=== PATIENT | male | born 1960 | race African-American/Black ===

== ENCOUNTER 2016-10-06 11:18 | Inpatient (IN) ==
[2016-10-06] MEDS ORDERED: SODIUM CHLORIDE 0.9% 500 ML IV STA (11:44)
--- NOTE | 2016-10-06 11:48 | EKG Report ---
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
--- NOTE | 2016-10-06 12:07 | XRay Report ---
XR chest 1V portable Indication: Abdominal pain Comparison: None. Technique: Portable AP chest was performed. Findings: 2-lead cardiac pacemaker is present. Heart size is normal. The lungs are clear. Pulmonary vasculature appears within normal limits. Bones and soft tissues demonstrate no significant abnormalities. Impression: 1. No findings are present to suggest etiology of abdominal pain. Stable interval appearance of the chest. 10/06/2016 12:04 PM PROCEDURE INTERPRETED AT [facility] DEPARTMENT OF RADIOLOGY Final Report Signed by: Dr. Moris Christopher
[2016-10-06] MEDS ORDERED: ONDANSETRON 4 MG/2 ML VIAL ONE ×2 (12:26→14:14)
--- NOTE | 2016-10-06 12:27 | CT Report ---
CT abdomen pelvis wo con Indication: Diffuse abdominal pain with rebound tenderness. Comparison: None. Technique: CT of the abdomen and pelvis was performed without administration of intravenous contrast. The CT examination was performed using one or more of the following dose reduction techniques: Automatic exposure control, adjustment of the mA and kV according to patient size, use of acute or iterative reconstruction techniques. Findings: Complete evaluation of solid organs, vascular structures, and bowel wall is not possible secondary to lack of intravenous contrast. Lower chest: Mild dependent atelectatic changes are noted within the lungs bilaterally. Calcified granulomas noted within the posterior sulcus left lower lobe. Liver: Punctate calcifications present within the liver are nonspecific and could reflect evidence of prior granulomatous disease. No focal lesions are clearly demonstrated. There is a small amount of ascites noted anterior to the margin of the right hepatic lobe as well as along the posterior margin of the right hepatic lobe. Gallbladder: The gallbladder demonstrates no significant abnormality. Spleen: Spleen is normal in size and demonstrates numerous punctate calcifications compatible with granulomatous disease. Pancreas: Pancreas demonstrates no significant abnormality. Adrenal glands: The adrenal glands demonstrate no significant abnormalities. Kidneys: The kidneys demonstrate no significant abnormalities. Aorta: The aorta demonstrates no significant abnormality. Inferior vena cava: The inferior vena cava demonstrates no significant abnormality. Lymph nodes: No adenopathy is noted within the abdomen or pelvis. Borderline lymph nodes noted within the mesentery. Stomach and bowel: Stomach demonstrates no significant abnormality. There may be a small hiatal hernia. The duodenum is unremarkable. Loops of small bowel particularly within the mid right abdomen demonstrate moderate length segment 7 which there is suggested bowel wall thickening. Bowel wall measures up to 10 mm. Additionally, there is some evidence of fluid within the leaves of the mesentery. Complete evaluation of bowel wall is incomplete secondary to lack of IV and enteric contrast. Additional bowel wall thickening in the left mid abdomen is suggested involving loops of what may represent jejunum image #[id number]. Bowel wall within this region of small bowel measures up to 7.8 mm. Hazy attenuation possibly reflective of inflammatory changes noted within the mesentery. Intrapelvic contents: Demonstrate no significant abnormalities. Skeletal structures: The imaged bony structures of the lumbar spine, lower chest, pelvis, proximal femurs demonstrate no acute findings. Soft tissues and muscular structure of the body wall: Demonstrate no significant abnormalities. Impression: 1. Multiple segments of small bowel demonstrate presence of bowel wall thickening involving what appears to represent jejunum. Additionally loops of ileum. Associated possibly with this free fluid is noted within the leaves of the mesentery as well as lies adjacent the margins of the liver. There may be some inflammatory changes of the mesentery. Borderline lymph nodes are present within the mesentery. Differential considerations are broad and include enteritis, inflammatory bowel disease, possibly celiac disease, ischemia, Waldenstrom's macroglobulinemia, amyloidosis, and lymphoma. 2. Other findings as detailed. 10/06/2016 12:16 PM PROCEDURE INTERPRETED AT [facility] DEPARTMENT OF RADIOLOGY Final Report Signed by: Dr. Moris Christopher
[2016-10-06 12:33] LABS: Basophils % 0.4 % (0.0-0.8); Eosinophils # 0.1 10*3/uL (0.0-0.87); Hematocrit 49.6 VOL% (42.0-52.0); Hemoglobin 16.9 GM/DL (14.0-18.0); Immature Granulocytes % 0.3 %; Immature Granulocytes Absolute 0.03 #; Lymphocytes # 2.6 10*3/uL (1.4-4.0); Lymphocytes % 24.9 % (21.2-54.2); Mean Corpuscular HGB Conc 34.1 GM/DL (32-36); Mean Corpuscular Hemoglobin 32 PG (27-34); Mean Corpuscular Volume 92.9 FL (87-102); Mean Platelet Volume 11.7 FL (9.6-12.0); Monocytes # 0.6 10*3/uL (0.11-0.8); Monocytes % 6.1 % (1.7-12.7); Neutrophils # 6.9 10*3/uL (1.4-7.4); Neutrophils % 67.3 % (38.7-73.9); Platelet Count 207 T/CUMM (130-400); Red Blood Count 5.34 MC/CUMM (3.8-5.5); Red Cell Distribution Width 13.1 % (9.3-17.3); White Blood Count 10.2 T/CUMM (4-12)
[2016-10-06] MEDS ORDERED: ONDANSETRON 4 MG/2 ML VIAL IV STA ×2 (12:36→14:12)
[2016-10-06 13:13] LABS: Alanine Aminotransferase 15 U/L (16-61); Albumin 3.7 G/DL (3.4-5.0); Alkaline Phosphatase 75 U/L (45-117); Aspartate Amino Transferase 16 U/L (0-37); Blood Urea Nitrogen 27 MG/DL (7-18); Calcium 9.1 MG/DL (8.5-10.1); Glucose 104 MG/DL (74-106); Magnesium 2.1 MG/DL (1.8-2.4); Osmolality,Calculated 281.5 MOS/KG (273-304); Potassium 3.7 MMOL/L (3.5-5.1); Sodium 139 MMOL/L (136-145); Total Protein 8.4 G/DL (6.4-8.3); Troponin I Only < 0.015 NG/ML (0.00-0.045)
[2016-10-06] MEDS ORDERED: HYDROmorphone 2 MG/1 ML VIAL IV STA (14:12)
[2016-10-06] MEDS ORDERED: HYDROmorphone 2 MG/1 ML VIAL ONE (14:15)
--- NOTE | 2016-10-06 14:35 | Emergency Department Note ---
Gerson Kunz Brittany, am scribing for, and in the presence of, Thomas Obrien MD 12:03. Camilel Kunz Phillip K, MD, personally performed the services described in this documentation, ascribed by Jessi Nieto in my presence, and it is both accurate and complete 435 . Arrival - Arrival Chief Complaint: Arrhythmia/Palpitations Stated Complaint: SOB,heart attack symptoms ED Nursing Triage Note: C/o midsternal chest tightness and palpitations-onset yesterday. Also c/o abd pain, nausea, and diarrhea that started yesterday. Mode of Arrival: Stretcher Limitations: No Limitations Source: Patient, RN Notes Reviewed - History of Present Illness HPI Narrative: Patient is a 56 y/o black male presenting to the ED by EMS for further evaluation of generalized abdominal pain which began two days ago. Patient reports that this onset of abdominal pain was precipitated by an episode of diaphoresis, chest pain, palpitations, and near syncope. He states that he did have an episode of N/V this morning. Patient notes that he does not have any chest pain, describes more so abdominal pain. He states that he has had episodes of this in the past, and with last ER visit he was treated with abx which led to resolution. Patient states that these episodes used to occur moreHe reports that he did follow-up as instructed on last visit and had an upper and lower GI scope performed, but etiology of these episodes have not been found. PCP is Dr. Toledo. Denies history of Cholecystectomy/Appendectomy or Liver Problems. Patient reports that he is an occasional EtOH user. PMHx of HTN , [place], Pacemaker, GERD, Cardiac Surgery, Colononscopy, and EGD. No other complaints. Allergies/Adverse Reactions: Allergies Allergy/AdvReac Type Severity Reaction Status Date / Time rifampin [From Rimactane] Allergy ANAPHYLAXIS Verified 03/27/15 19:34 Home Medications: Home Medications Medication Instructions Recorded Confirmed Type Etanercept [Enbrel] 50 mg SUBCUT MO 03/28/15 10/06/16 History HYDROcodone/ACETAMIN 10-325 [[place] 1 tablet PO Q4H PRN 03/28/15 10/06/16 History 10-325] Omeprazole 20 mg PO BID 03/28/15 10/06/16 History Meloxicam [Mobic] 15 mg PO QAM 10/19/15 10/06/16 History amLODIPine [Norvasc] 10 mg PO QAM 10/19/15 10/06/16 History hydrALAZINE TAB [Apresoline Tab] 10 mg PO QID 10/19/15 10/06/16 History Lisinopril [Lisinopril] 40 mg PO QAM 10/06/16 10/06/16 History hydroCHLOROthiazide 25 mg PO QAM 10/06/16 10/06/16 History [Hydrochlorothiazide] Review of System - Review of System 12 point system: reviewed and no additional remarkable complaints except as stated - Review of System Constitutional: Absent: chills, diaphoresis, fever Eyes: Absent: vision change Head/Ears/Nose/Throat: Absent: nasal drainage, sore throat Respiratory: Absent: respiratory distress Cardiovascular: Absent: chest pain Gastrointestinal: Present: abdominal pain, nausea, vomiting Genitourinary male: Absent: urgency, dysuria, frequency Musculoskeletal: Absent: arm pain, back pain, leg pain, neck pain Skin: Absent: rash Neurological: Absent: headache Psychiatric: Absent: anxiety, depression Medical,Surgical,& Family Hx - Medical History Cardio: History of: [place], Pacemaker (3 years ago) HEENT: History of: Eye Problem (poor vision?) Gastrointestinal: History of: GERD - Surgical History Cardiac Surgeries: Sugical HX of: Cardiac Surgery, Vascular Access Devices Abdominal Surgeries: Surgical HX of: Colonoscopy, EGD - Family History Family History: Reports;: Family Cancer (sister), Family Diabetes (father), Family Hypertension ("everybody") Denies;: Family Anesthesia Reaction, Family Heart Disease, Family Psychiatric Problems, Family Stroke - Social History Smoking Status: Never smoker Frequency of Alcohol Use: None Type of Drug Use: None Exam Vital Signs: Vital Signs Temperature 97.4 F L 10/06/16 11:26 Pulse Rate 74 10/06/16 13:30 Respiratory Rate 20 10/06/16 13:30 Blood Pressure 118/79 10/06/16 13:30 O2 Sat by Pulse Oximetry 97 10/06/16 13:30 - General General appearance: alert, in no apparent distress - Head Head exam: Present: atraumatic, normocephalic, normal inspection - Eye Eye exam: Present: normal appearance, PERRL, EOMI - ENT ENT exam: Present: normal exam, normal oropharynx - Neck Neck exam: Present: normal inspection, full ROM, trachea midline - Chest Chest inspection: Present: normal inspection, symmetric chest wall rise - Respiratory Respiratory exam: Present: normal lung sounds bilaterally - Cardiovascular Cardiovascular exam: Present: regular rate, normal rhythm, normal heart sounds - Abdominal Exam Abdominal exam: Present: soft, distention (slight), tenderness (diffuse abdominal tenderness to direct palpation), guarding, rebound, diminished bowel sounds - Rectal Exam Rectal exam: Present: deferred - Extremities Exam Extremities exam: Present: normal inspection - Back Exam Back exam: Present: normal inspection - Neurological Exam Neurological exam: Present: alert, oriented X3, CN II-XII intact. Absent: motor sensory deficit - Psychiatric Psychiatric exam: Present: normal affect, normal mood - Skin Skin exam: Present: warm, dry Course Course Narrative: Patient discussed with the hospitalist. Results - Labs CBC & BMP: 10/06/16 12:24 10/06/16 12:24 Lab Results: I have reviewed the patients labs Labs: Laboratory Tests 10/06/16 12:16 POC Creatinine 2.11 H POC Estimated GFR (eGFR) 42 Laboratory Tests 10/06/16 12:24 WBC 10.2 RBC 5.34 Hgb 16.9 Hct 49.6 Plt Count 207 Laboratory Tests 10/06/16 12:24 Sodium 139 Potassium 3.7 Chloride 109 H Carbon Dioxide 21 BUN 27 H Creatinine 2.40 H Glucose 104 AST 16 ALT 15 L Troponin I < 0.015 Total Protein 8.4 H Globulin 4.7 H Albumin/Globulin Ratio 0.7 L - EKG EKG results: interpreted by ERMD, WNL, sinus rhythm - Diagnostic Findings Procedure: Chest x-ray: report reviewed by me ( No findings are present to suggest etiology of abdominal pain. ), CT Abdomen and Pelvis: report reviewed by me (1. Multiple segments of small bowel demonstrate presence of bowel wall thickening involving what appears to represent jejunum. Additionally loops of ileum. Associated possibly with this free fluid is noted within the leaves of the mesentery as well as lies adjacent the margins of the liver. There may be some inflammatory changes of the mesentery. Borderline lymph nodes are present within the mesentery. Differential considerations are broad and include enteritis, inflammatory bowel disease, possibly celiac disease, ischemia, Waldenstrom's macroglobulinemia, amyloidosis, and lymphoma. 2. Other findings as detailed.) Disposition Clinical Impression: Abdominal pain, Nausea and vomiting, Rule out colitis, inflammatory bowel dis Case discussed with: patient Disposition: Still a Patient Condition: Guarded Additional Instructions: Admit to the hospitalist
[2016-10-06 14:38] LABS: Apearance,Urine Slightly Hazy (Clear); Bacteria,Urine Occasional /HPF (Few); Bilirubin,Urine Negative (Negative); Blood, Urine Negative (Negative); Glucose,Urine (UA) Negative (Negative); Ketones,Urine Negative (Negative); Mucus,Urine Occasional /LPF (Occasional); Nitrite,Urine Negative (Negative); Protein,Urine Negative; RBC,Urine 1 /HPF (0-4); Squamous Epithelial Cell,Urine Occasional /HPF (0-10); Urine Specific Gravity 1.019 (1.001-1.035); WBC,Urine 4 /HPF (0-6)
[2016-10-06 14:39] LABS: Urine Color Dark yellow (Yellow)
--- NOTE | 2016-10-06 15:23 | Hospitalist History & Physical ---
Assessment and Plan - Time spent with patient Time spent with patient: Greater than 30 minutes (1) Abdominal pain Status: Acute Assessment and plan: Patient is diffusely tender across the abdomen. He does have a history of ankylosing spondylitis and appears to have this recurrent abdominal inflammation annually. Given the patient's history, and the suspicion of inflammatory bowel disease is quite high. Will check for C. difficile and stool culture. Start Cipro, Flagyl and normal saline. Patient was started on clear liquid diet. GI has been consulted for assistance. Current Visit: Yes (2) Ankylosing spondylitis Status: Acute Assessment and plan: Patient is followed by Dr. Toledo. He currently takes Enbrel along with Tracy and Mobic. Current Visit: Yes (3) Acute renal failure Status: Acute Assessment and plan: IV fluid hydration. Current Visit: Yes (4) Hypertension Status: Chronic Assessment and plan: Continue home medications. Current Visit: No (5) Intractable nausea and vomiting Status: Resolved Current Visit: No History of Present Illness Chief complaint: abdominal pain History of present illness: Mr. Jordan is a 56 year old -[place] male with a past medical history significant for hypertension, ankylosing spondylosis, [place] with PM placement in 2012 who presents to the ED today with a 3-day complaint of abdominal pain and distension with associated N/V/D. Patient reports a sudden onset of diffuse abdominal pain on Tuesday. He tells me that he became nauseous with vomiting and diarrhea late Tuesday night. This diarrhea he describes as watery stool and he reports several episodes at 30 min to 1 hour intervals. He does report some constipation several days prior to this diarrhea. Patient confirms headache, diffuse abdominal tenderness and distention, and decreased appetite. He also notes that, when he coughs, he feels as though he is about to "pass out". He denies actual syncope, blurry vision, edema. He notes that he has had several episodes of this abdominal pain over the last few years but has never been diagnosed definitely with any cause. CT on admission reveals multiple segments of small bowl wall thickening with inflammatory changes of the mesentery. Hematology is unremarkable. Chemistry reveals sodium 139, potassium 3.7, chloride 109, BUN 27, creatinine 2.40, total bili 0.90, AST 16, ALT 15, alkaline phosphatase 75, lipase was 66. Case been discussed with both Dr. Obrien, ER physician, and Dr. French, admitting physician and the patient will be admitted to the hospital medicine service for further evaluation and treatment. Patient is a full code. His home meds reviewed and reconciled. Home Medications Medication Instructions Recorded Confirmed Type Etanercept [Enbrel] 50 mg SUBCUT MO 03/28/15 10/06/16 History HYDROcodone/ACETAMIN 10-325 [[place] 1 tablet PO Q4H PRN 03/28/15 10/06/16 History 10-325] Omeprazole 20 mg PO BID 03/28/15 10/06/16 History Meloxicam [Mobic] 15 mg PO QAM 10/19/15 10/06/16 History amLODIPine [Norvasc] 10 mg PO QAM 10/19/15 10/06/16 History hydrALAZINE TAB [Apresoline Tab] 10 mg PO QID 10/19/15 10/06/16 History Lisinopril [Lisinopril] 40 mg PO QAM 10/06/16 10/06/16 History hydroCHLOROthiazide 25 mg PO QAM 10/06/16 10/06/16 History [Hydrochlorothiazide] Allergies Allergy/AdvReac Type Severity Reaction Status Date / Time rifampin [From Rimactane] Allergy ANAPHYLAXIS Verified 03/27/15 19:34 Medical,Surgical,& Family Hx - Medical History Cardio: History of: [place], Pacemaker (3 years ago) HEENT: History of: Eye Problem (poor vision?) Gastrointestinal: History of: GERD - Surgical History Cardiac Surgeries: Sugical HX of: Cardiac Surgery, Vascular Access Devices Abdominal Surgeries: Surgical HX of: Colonoscopy, EGD - Family History Family History: Reports;: Family Cancer (sister), Family Diabetes (father), Family Hypertension ("everybody") Denies;: Family Anesthesia Reaction, Family Heart Disease, Family Psychiatric Problems, Family Stroke - Social History Smoking Status: Never smoker Frequency of Alcohol Use: None Type of Drug Use: None Marital Status: Lives With:: Spouse Functional capacity: independent ambulation 12 point system: reviewed and no additional remarkable complaints except as stated Exam - Constitutional Vitals: Period Temp Pulse Resp BP Sys/Bradley Pulse Ox Last 24 Hr 97.4 F-97.4 F 69-86 17-20 104-131/71-87 96-99 General appearance: normal weight, no acute distress - Head Head exam: Present: normal inspection, normocephalic, atraumatic - Eye Eye exam: Present: EOMI Pupils: Present: JOANNE - Neck Neck exam: Present: normal inspection. Absent: lymphadenopathy, tenderness - Respiratory Respiratory exam: Present: clear to auscultation bilaterally. Absent: rales, rhonchi, wheezes - Cardiovascular Cardiovascular exam: Present: irregular rhythm - GI/Abdominal GI/Abdominal exam: Present: normal bowel sounds, distended, guarding, tenderness , rebound. Absent: ascites, mass - Extremities Exam Extremities exam: Present: normal capillary refill, full ROM. Absent: edema - Neurological Exam Neurological exam: Present: alert, oriented X3, CN II-XII intact, reflexes normal - Psychiatric Psychiatric exam: Present: normal affect, normal mood - Skin Skin exam: Present: normal color, warm, dry, intact Results - Labs CBC & BMP: 10/06/16 12:24 10/06/16 12:24 Lab Results: I have reviewed the past 24 hour labs - EKG EKG results: interpreted by DICK, sinus rhythm - Diagnostic Findings Procedure: CT Abdomen and Pelvis: image reviewed by me, report reviewed by me
[2016-10-06] MEDS ORDERED: ACETAMINOPHEN 325 MG TABLET PO PRN (15:26)
--- NOTE | 2016-10-06 15:45 | Gastrointestinal Consult Note ---
<Jessie Sweeney - Last Filed: 10/06/16 15:40> Assessment and Plan (1) Abdominal pain Status: Acute Assessment and plan: 82-2 day history of abdominal pain with associated nausea vomiting and intractable diarrhea over the last [address] findings noted as below. Reports prior history of this 4 over the past year and a half. Endoscopy done at [facility] over the past year. Afebrile without leukocytosis at present time. Obtain endoscopy records from [facility]. Further plan an addendum follow Dr. Hernandez. Current Visit: Yes History of Present Illness Chief complaint: Abdominal pain, nausea vomiting History of present illness: Mr. Jordan is a 56 year old male who states he was in his usual state of health until Tuesday night when he began not feeling well. He has a prior history of hypertension, spondylolithiasis, [place] with pacemaker in 2012. Patient states that Tuesday night he had a fairly sudden onset of umbilical abdominal pain that radiated across his abdomen. He states shortly after that he became nauseated and began vomiting. Patient states that leading up until this a couple days prior, he was dealing with some constipation and some abdominal discomfort related to this. He states that the pain continued to progress without relief and on last night began having intractable diarrhea. He states that he has had diarrhea stools approximately every 30 minutes to an hour since onset. He denies any melena or hematochezia with this. He denies any coffee-ground emesis or hematemesis. He denies any recent weight loss, fever or chills. He states he has had some diaphoresis with the pain as well as some feelings of syncope. Patient states that this is the fourth episode of this, very similar nature each time, over the past year and a half. He was hospitalized here in March 2015 and was felt to have gastroenteritis and was discharged with recommendations to follow up for endoscopy. He is followed by Dr. Shabana dockery therefore states he had endoscopy done, upper liver, in the past year with no significant findings that he can recall. He states that on a couple of episodes , antibiotics seem to alleviate the symptoms and it was fairly easily resolved. On admission, patient had CT of abdomen without contrast with findings of multiple segments of small bowel wall thickening appearing around the jejunum with additional loops of the ileum. He is also noted to have some inflammatory changes of the mesentery with borderline lymph nodes. He is afebrile at this time without leukocytosis. Home Medications Medication Instructions Recorded Confirmed Type Etanercept [Enbrel] 50 mg SUBCUT MO 03/28/15 10/06/16 History HYDROcodone/ACETAMIN 10-325 [[place] 1 tablet PO Q4H PRN 03/28/15 10/06/16 History 10-325] Omeprazole 20 mg PO BID 03/28/15 10/06/16 History Meloxicam [Mobic] 15 mg PO QAM 10/19/15 10/06/16 History amLODIPine [Norvasc] 10 mg PO QAM 10/19/15 10/06/16 History hydrALAZINE TAB [Apresoline Tab] 10 mg PO QID 10/19/15 10/06/16 History Lisinopril [Lisinopril] 40 mg PO QAM 10/06/16 10/06/16 History hydroCHLOROthiazide 25 mg PO QAM 10/06/16 10/06/16 History [Hydrochlorothiazide] Allergies Allergy/AdvReac Type Severity Reaction Status Date / Time rifampin [From Rimactane] Allergy ANAPHYLAXIS Verified 03/27/15 19:34 Medical,Surgical,& Family Hx - Medical History Cardio: History of: [place], Pacemaker (3 years ago) HEENT: History of: Eye Problem (poor vision?) Gastrointestinal: History of: GERD - Surgical History Cardiac Surgeries: Sugical HX of: Cardiac Surgery, Vascular Access Devices Abdominal Surgeries: Surgical HX of: Colonoscopy, EGD - Family History Family History: Reports;: Family Cancer (sister), Family Diabetes (father), Family Hypertension ("everybody") Denies;: Family Anesthesia Reaction, Family Heart Disease, Family Psychiatric Problems, Family Stroke - Social History Smoking Status: Never smoker Frequency of Alcohol Use: None Type of Drug Use: None 12 point system: reviewed and no additional remarkable complaints except as stated - Constitutional Constitutional: Present: excessive sweating - EENT Eyes: Present: as per HPI Ears: Present: as per HPI Nose, mouth and throat: Present: as per HPI - Cardiovascular Cardiovascular: Present: as per HPI - Respiratory Respiratory: Present: as per HPI - Gastrointestinal Gastrointestinal: Present: as per HPI, abdominal pain, bloating, diarrhea, loose stools, nausea, vomiting - Genitourinary Genitourinary: Present: as per HPI - Musculoskeletal Musculoskeletal: Present: as per HPI, arthralgias - Neurological Neurological: Present: as per HPI - Psychiatric Psychiatric: Present: as per HPI - Endocrine Endocrine: Present: as per HPI - Hematologic/Lymphatic Hematologic/Lymphatic: Present: as per HPI Exam - Constitutional Vitals: Period Temp Pulse Resp BP Sys/Bradley Pulse Ox Last 24 Hr 97.4 F-97.4 F 69-86 17-20 104-131/71-87 96-99 General appearance: normal weight, no acute distress - Head Head exam: Present: normal inspection, normocephalic - Eye Eye exam: Present: other (Lids and conjunctive are unremarkable). Absent: scleral icterus - ENT ENT exam: Present: normal exam, normal oropharynx - Neck Neck exam: Present: normal inspection - Respiratory Respiratory exam: Present: clear to auscultation bilaterally. Absent: rales, rhonchi, wheezes - Cardiovascular Cardiovascular exam: Present: regular rate and rhythm. Absent: diastolic murmur , JVD, systolic murmur - GI/Abdominal GI/Abdominal exam: Present: normal bowel sounds, distended, tenderness, soft. Absent: ascites, mass, organomegaly - Extremities Exam Extremities exam: Present: normal inspection, full ROM - Back Exam Back exam: Present: normal inspection - Neurological Exam Neurological exam: Present: alert, oriented X3 - Psychiatric Psychiatric exam: Present: normal affect, normal mood - Skin Skin exam: Present: normal color, warm, dry Results - Labs CBC & BMP: 10/06/16 12:24 10/06/16 12:24 Lab Results: I have reviewed the past 24 hour labs - Diagnostic Findings Procedure: CT Abdomen and Pelvis: report reviewed by me <Gerson Hernandez - Last Filed: 10/06/16 19:36> History of Present Illness History of present illness: Mr. Jordan is a 56 year old male Exam - Constitutional Vitals: Period Temp Pulse Resp BP Sys/Bradley Pulse Ox Last 24 Hr 97.4 F-97.9 F 49-86 16-20 104-149/62-93 96-99 Results - Labs CBC & BMP: 10/06/16 12:24 10/06/16 12:24
[2016-10-06] MEDS: SODIUM CHLORIDE 0.9% 1,000 ML IV SCH (16:30)
[2016-10-06] MEDS: metroNIDAZOLE INJ 500 MG in PREMIX 1 EACH IV SCH (17:08)
[2016-10-06] MEDS: ENOXAPARIN 40 MG/0.4 ML SYRINGE SUBCUT SCH (17:08)
[2016-10-06] MEDS: hydrALAZINE 10 MG TABLET PO SCH ×2 (17:09→20:37)
[2016-10-06] MEDS: CIPROFLOXACIN INJ 400 MG in PREMIX 1 EACH IV SCH (18:09)
[2016-10-06] MEDS: ONDANSETRON 4 MG/2 ML VIAL IV PRN (18:12)
[2016-10-07] MEDS: metroNIDAZOLE INJ 500 MG in PREMIX 1 EACH IV SCH ×3 (00:39→16:08)
[2016-10-07] MEDS: SODIUM CHLORIDE 0.9% 1,000 ML IV SCH ×5 (00:40→23:42)
[2016-10-07] MEDS: CIPROFLOXACIN INJ 400 MG in PREMIX 1 EACH IV SCH ×2 (05:54→17:23)
[2016-10-07] MEDS: MORPHINE 2 MG/1 ML SYRINGE IV PRN (05:57)
[2016-10-07 07:23] LABS: Basophils % 0.5 % (0.0-0.8); Eosinophils # 0.1 10*3/uL (0.0-0.87); Eosinophils % 2.1 % (0.00-10.9); Hematocrit 40.6 VOL% (42.0-52.0); Immature Granulocytes % 0.5 %; Immature Granulocytes Absolute 0.03 #; Lymphocytes # 1.9 10*3/uL (1.4-4.0); Lymphocytes % 30.9 % (21.2-54.2); Mean Corpuscular HGB Conc 34.2 GM/DL (32-36); Mean Corpuscular Hemoglobin 32 PG (27-34); Mean Corpuscular Volume 93.3 FL (87-102); Mean Platelet Volume 12.7 FL (9.6-12.0); Monocytes # 0.5 10*3/uL (0.11-0.8); Monocytes % 8.4 % (1.7-12.7); Neutrophils # 3.6 10*3/uL (1.4-7.4); Neutrophils % 57.6 % (38.7-73.9); Platelet Count 167 T/CUMM (130-400); Red Blood Count 4.35 MC/CUMM (3.8-5.5)
[2016-10-07 07:24] LABS: Hemoglobin 13.9 GM/DL (14.0-18.0); White Blood Count 6.2 T/CUMM (4-12)
[2016-10-07 07:45] LABS: Calcium 8.4 MG/DL (8.5-10.1); Osmolality,Calculated 284.4 MOS/KG (273-304); Potassium 3.6 MMOL/L (3.5-5.1)
--- NOTE | 2016-10-07 08:48 | Gastrointestinal Progress Note ---
<BrigittemoonJessie Tucker - Last Filed: 10/07/16 08:42> Assessment and Plan (1) Abdominal pain Status: Acute Assessment and plan: 10/07-abdominal pain improved at this time. No further nausea or vomiting since last night. Tolerating small amounts of diet. Records still pending from [place]. Continue IV antibiotics at this time. Plan an addendum to follow Dr. Hernandez. 10/06-2 day history of abdominal pain with associated nausea vomiting and intractable diarrhea over the last [address] findings noted as below. Reports prior history of this 4 over the past year and a half. Endoscopy done at [facility] over the past year. Afebrile without leukocytosis at present time. Obtain endoscopy records from [place]. Further plan an addendum follow Dr. Hernandez. Current Visit: Yes Gastroenterology - PN: Subj Interval history: CC: Abdominal pain, nausea and vomiting Pt is seen awake and alert, sitting up in bed with family at side. States that he is feeling a little better today. Denies any further nausea or vomiting since last night. He has had approximately 4 stools since admission on yesterday however states that it is better at this time. He is afebrile. We are still awaiting records at this time from [place]. He is tolerating small amounts of clear liquid diet at this time. ROS: Denies SOB or chest pain Exam (Progress Note) - Constitutional Vitals: Period Temp Pulse Resp BP Sys/Bradley Pulse Ox Last 24 Hr 97.0 F-98.4 F 49-86 16-20 104-149/55-93 93-99 General appearance: normal weight, no acute distress - Head Head exam: Present: normal inspection, normocephalic - Eye Eye exam: Present: other (Lids and conjunctive are unremarkable). Absent: scleral icterus - ENT ENT exam: Present: normal exam, normal oropharynx - Neck Neck exam: Present: normal inspection - Respiratory Respiratory exam: Present: clear to auscultation bilaterally. Absent: rales, rhonchi, wheezes - Cardiovascular Cardiovascular exam: Present: regular rate and rhythm. Absent: diastolic murmur , JVD, systolic murmur - GI/Abdominal GI/Abdominal exam: Present: normal bowel sounds, soft. Absent: ascites, distended, mass, organomegaly, tenderness - Extremities Exam Extremities exam: Present: normal inspection, full ROM - Back Exam Back exam: Present: normal inspection - Neurological Exam Neurological exam: Present: alert, oriented X3 - Psychiatric Psychiatric exam: Present: normal affect, normal mood - Skin Skin exam: Present: normal color, warm, dry Results - Labs CBC & BMP: 10/07/16 06:23 10/07/16 06:23 Lab Results: I have reviewed the past 24 hour labs <Gerson Hernandez - Last Filed: 10/07/16 18:29> Exam (Progress Note) - Constitutional Vitals: Period Temp Pulse Resp BP Sys/Bradley Pulse Ox Last 24 Hr 97.0 F-98.4 F 60-72 16-24 113-136/55-88 93-97 Results - Labs CBC & BMP: 10/07/16 06:23 10/07/16 06:23
[2016-10-07] MEDS: amLODIPine 10 MG TABLET PO SCH (09:26)
[2016-10-07] MEDS: hydrALAZINE 10 MG TABLET PO SCH ×4 (09:26→20:14)
--- NOTE | 2016-10-07 13:10 | Hospitalist Progress Note ---
Assessment and Plan (1) Abdominal pain Status: Acute Assessment and plan: GI assisting Attempting to get records from [place] On cipro and flagyl Current Visit: Yes (2) Hypertension Status: Chronic Assessment and plan: Home meds Current Visit: No (3) Intractable nausea and vomiting Status: Resolved Current Visit: No (4) Ankylosing spondylitis Status: Acute Current Visit: Yes (5) Acute renal failure Status: Acute Assessment and plan: Improving with IV hydration Current Visit: Yes Hospitalist: Subjective Interval history: No acute events overnight. Patient reports abdominal distention is unchanged but he does feel better. Abdominal pain and nausea are improving. Exam - Constitutional Vitals: Period Temp Pulse Resp BP Sys/Bradley Pulse Ox Last 24 Hr 97.0 F-98.4 F 49-79 16-20 111-149/55-93 93-99 General appearance: normal weight - Head Head exam: Present: normocephalic, atraumatic - Eye Eye exam: Present: EOMI Pupils: Present: JOANNE - ENT ENT exam: Present: normal exam - Neck Neck exam: Present: normal inspection - Respiratory Respiratory exam: Present: clear to auscultation bilaterally. Absent: rhonchi, wheezes - Cardiovascular Cardiovascular exam: Present: regular rate and rhythm - GI/Abdominal GI/Abdominal exam: Present: normal bowel sounds, distended, soft - Extremities Exam Extremities exam: Present: normal inspection - Back Exam Back exam: Present: normal inspection - Neurological Exam Neurological exam: Present: alert, oriented X3 - Psychiatric Psychiatric exam: Present: normal affect, normal mood - Skin Skin exam: Present: warm, intact Results - Labs CBC & BMP: 10/07/16 06:23 10/07/16 06:23
[2016-10-07] MEDS: ENOXAPARIN 40 MG/0.4 ML SYRINGE SUBCUT SCH (16:08)
[2016-10-08] MEDS: metroNIDAZOLE INJ 500 MG in PREMIX 1 EACH IV SCH ×3 (00:39→17:22)
[2016-10-08] MEDS: CIPROFLOXACIN INJ 400 MG in PREMIX 1 EACH IV SCH ×2 (05:43→17:22)
[2016-10-08] MEDS: MORPHINE 2 MG/1 ML SYRINGE IV PRN (06:42)
[2016-10-08] MEDS: ONDANSETRON 4 MG/2 ML VIAL IV PRN (06:47)
[2016-10-08 07:12] LABS: Basophils % 0.6 % (0.0-0.8); Eosinophils # 0.1 10*3/uL (0.0-0.87); Eosinophils % 1.9 % (0.00-10.9); Hematocrit 38.5 VOL% (42.0-52.0); Hemoglobin 13.2 GM/DL (14.0-18.0); Lymphocytes # 1.6 10*3/uL (1.4-4.0); Lymphocytes % 30.1 % (21.2-54.2); Mean Corpuscular HGB Conc 34.3 GM/DL (32-36); Mean Corpuscular Hemoglobin 32 PG (27-34); Mean Corpuscular Volume 92.3 FL (87-102); Mean Platelet Volume 11.6 FL (9.6-12.0); Monocytes # 0.4 10*3/uL (0.11-0.8); Monocytes % 8.1 % (1.7-12.7); Neutrophils # 3.1 10*3/uL (1.4-7.4); Neutrophils % 59.3 % (38.7-73.9); Platelet Count 164 T/CUMM (130-400); Red Blood Count 4.17 MC/CUMM (3.8-5.5); Red Cell Distribution Width 12.6 % (9.3-17.3); White Blood Count 5.2 T/CUMM (4-12)
[2016-10-08 07:41] LABS: Calcium 8.6 MG/DL (8.5-10.1); Magnesium 1.9 MG/DL (1.8-2.4); Osmolality,Calculated 281.3 MOS/KG (273-304); Potassium 3.6 MMOL/L (3.5-5.1)
--- NOTE | 2016-10-08 08:53 | Gastrointestinal Progress Note ---
<BrigittemoonJessie Tucker - Last Filed: 10/08/16 08:51> Assessment and Plan (1) Abdominal pain Status: Acute Assessment and plan: 10/08-continued improvement in abdominal pain at this time. Small bowel x-ray is pending for this morning. Records are also still pending from [place]. Plan an addendum to follow Dr. Hernandez peer 10/07-abdominal pain improved at this time. No further nausea or vomiting since last night. Tolerating small amounts of diet. Records still pending from [place]. Continue IV antibiotics at this time. Plan an addendum to follow Dr. Hernandez. 10/06-2 day history of abdominal pain with associated nausea vomiting and intractable diarrhea over the last [address] findings noted as below. Reports prior history of this 4 over the past year and a half. Endoscopy done at [place] over the past year. Afebrile without leukocytosis at present time. Obtain endoscopy records from [place]. Further plan an addendum follow Dr. Hernandez. Current Visit: Yes Gastroenterology - PN: Subj Interval history: CC: Abdominal pain Patient is seen, awake and alert lying in bed. States that he rested fairly well last night however he is still having an continued abdominal pain but he states this is improved from admission. He denies any nausea or vomiting associated with this. He has been tolerating small amounts of diet however he is n.p.o. at this time for small bowel x-ray this morning. No leukocytosis and is afebrile. Records are still pending from [place] at this time. Abdomen is soft , nontender. ROS: Denies shortness of breath or chest pain Exam (Progress Note) - Constitutional Vitals: Period Temp Pulse Resp BP Sys/Bradley Pulse Ox Last 24 Hr 97.3 F-98.2 F 60-70 16-24 130-136/68-82 92-97 General appearance: normal weight, no acute distress - Head Head exam: Present: normal inspection, normocephalic - Eye Eye exam: Present: other (Lids and conjunctive are unremarkable). Absent: scleral icterus - ENT ENT exam: Present: normal exam, normal oropharynx - Neck Neck exam: Present: normal inspection - Respiratory Respiratory exam: Present: clear to auscultation bilaterally. Absent: rales, rhonchi, wheezes - Cardiovascular Cardiovascular exam: Present: regular rate and rhythm. Absent: diastolic murmur , JVD, systolic murmur - GI/Abdominal GI/Abdominal exam: Present: normal bowel sounds, soft. Absent: ascites, distended, mass, organomegaly, tenderness - Extremities Exam Extremities exam: Present: normal inspection, full ROM - Back Exam Back exam: Present: normal inspection - Neurological Exam Neurological exam: Present: alert, oriented X3 - Psychiatric Psychiatric exam: Present: normal affect, normal mood - Skin Skin exam: Present: normal color, warm, dry Results - Labs CBC & BMP: 10/08/16 07:01 10/08/16 07:01 Lab Results: I have reviewed the past 24 hour labs <Gerson Hernandez - Last Filed: 10/08/16 16:30> Exam (Progress Note) - Constitutional Vitals: Period Temp Pulse Resp BP Sys/Bradley Pulse Ox Last 24 Hr 97.6 F-98.2 F 60-66 12-20 130-158/73-100 92-97 Results - Labs CBC & BMP: 10/08/16 07:01 10/08/16 07:01
[2016-10-08] MEDS: hydrALAZINE 10 MG TABLET PO SCH ×4 (09:21→20:31)
[2016-10-08] MEDS: amLODIPine 10 MG TABLET PO SCH (09:21)
[2016-10-08] MEDS: SODIUM CHLORIDE 0.9% 1,000 ML IV SCH ×2 (09:51→21:18)
--- NOTE | 2016-10-08 13:22 | Hospitalist Progress Note ---
Assessment and Plan (1) Abdominal pain Status: Acute Assessment and plan: GI assisting Attempting to get records from [place] On cipro and flagyl small bowel x-ray pending Current Visit: Yes (2) Hypertension Status: Chronic Assessment and plan: Home meds Current Visit: No (3) Intractable nausea and vomiting Status: Resolved Current Visit: No (4) Ankylosing spondylitis Status: Acute Current Visit: Yes (5) Acute renal failure Status: Acute Assessment and plan: Improved with IV hydration Current Visit: Yes Hospitalist: Subjective Interval history: No acute events overnight. Patient reports that his abdominal pain is unchanged. Exam - Constitutional Vitals: Period Temp Pulse Resp BP Sys/Bradley Pulse Ox Last 24 Hr 97.5 F-98.2 F 60-66 16-24 130-158/68-87 92-97 General appearance: normal weight - Head Head exam: Present: normocephalic, atraumatic - Eye Eye exam: Present: EOMI Pupils: Present: JOANNE - ENT ENT exam: Present: normal exam - Neck Neck exam: Present: normal inspection - Respiratory Respiratory exam: Present: clear to auscultation bilaterally - Cardiovascular Cardiovascular exam: Present: regular rate and rhythm - GI/Abdominal GI/Abdominal exam: Present: distended, hypoactive bowel sounds, tenderness, soft - Extremities Exam Extremities exam: Present: normal inspection - Back Exam Back exam: Present: normal inspection - Neurological Exam Neurological exam: Present: alert, oriented X3 - Psychiatric Psychiatric exam: Present: normal affect, normal mood - Skin Skin exam: Present: warm, intact Results - Labs CBC & BMP: 10/08/16 07:01 10/08/16 07:01
--- NOTE | 2016-10-08 15:01 | Fluoroscopy Report ---
Small bowel series Indication: Abdominal pain, enteritis Findings: There is normal passage of contrast through the small bowel. The fold pattern appears normal. There is no filling defects, ulcerations or mass effects identified. Fluoroscopic images over the terminal ileum show no abnormality. Fluoroscopy time 1.18 minutes. Impression: No evidence of abnormality demonstrated. PROCEDURE INTERPRETED AT [facility] DEPARTMENT OF RADIOLOGY Final Report Signed by: Dr. Davis Hodgson
[2016-10-08] MEDS: ENOXAPARIN 40 MG/0.4 ML SYRINGE SUBCUT SCH (17:22)
[2016-10-09] MEDS: metroNIDAZOLE INJ 500 MG in PREMIX 1 EACH IV SCH ×3 (00:02→16:34)
[2016-10-09] MEDS: CIPROFLOXACIN INJ 400 MG in PREMIX 1 EACH IV SCH ×2 (05:39→18:02)
[2016-10-09 07:11] LABS: Calcium 8.4 MG/DL (8.5-10.1); Magnesium 1.9 MG/DL (1.8-2.4); Osmolality,Calculated 277.4 MOS/KG (273-304); Potassium 3.7 MMOL/L (3.5-5.1)
[2016-10-09] MEDS: amLODIPine 10 MG TABLET PO SCH (08:49)
[2016-10-09] MEDS: hydrALAZINE 10 MG TABLET PO SCH ×4 (08:49→21:09)
[2016-10-09] MEDS: SODIUM CHLORIDE 0.9% 1,000 ML IV SCH ×2 (15:01→21:08)
[2016-10-09] MEDS: ENOXAPARIN 40 MG/0.4 ML SYRINGE SUBCUT SCH (16:33)
--- NOTE | 2016-10-09 16:41 | Hospitalist Progress Note ---
Assessment and Plan (1) Abdominal pain Status: Acute Assessment and plan: GI assisting Attempting to get records from [place] On cipro and flagyl small bowel x-ray without abnormality Pain is now improved, but patient is also still on IV abx Current Visit: Yes (2) Hypertension Status: Chronic Assessment and plan: Home meds Current Visit: No (3) Intractable nausea and vomiting Status: Resolved Current Visit: No (4) Ankylosing spondylitis Status: Acute Current Visit: Yes (5) Acute renal failure Status: Acute Assessment and plan: Improved with IV hydration Current Visit: Yes Hospitalist: Subjective Interval history: No acute events overnight. Patient reports that his abdominal pain is resolved. He is tolerating a diet without pain or nausea. Exam - Constitutional Vitals: Period Temp Pulse Resp BP Sys/Bradley Pulse Ox Last 24 Hr 97.6 F-98.3 F 62-75 14-20 136-159/81-93 91-100 General appearance: normal weight - Head Head exam: Present: normocephalic, atraumatic - Eye Eye exam: Present: EOMI Pupils: Present: JOANNE - ENT ENT exam: Present: normal exam - Neck Neck exam: Present: normal inspection - Respiratory Respiratory exam: Present: clear to auscultation bilaterally - Cardiovascular Cardiovascular exam: Present: regular rate and rhythm - GI/Abdominal GI/Abdominal exam: Present: normal bowel sounds, soft. Absent: tenderness, rebound - Extremities Exam Extremities exam: Present: normal inspection - Back Exam Back exam: Present: normal inspection - Neurological Exam Neurological exam: Present: alert, oriented X3 - Psychiatric Psychiatric exam: Present: normal affect, normal mood - Skin Skin exam: Present: warm, intact Results - Labs CBC & BMP: 10/08/16 07:01 10/09/16 05:45
[2016-10-09] MEDS: PANTOPRAZOLE 40 MG TABLET PO SCH (21:09)
[2016-10-09] MEDS: ONDANSETRON 4 MG/2 ML VIAL IV PRN (22:46)
[2016-10-09] MEDS: MORPHINE 2 MG/1 ML SYRINGE IV PRN (22:48)
[2016-10-10] MEDS: metroNIDAZOLE INJ 500 MG in PREMIX 1 EACH IV SCH ×3 (00:37→17:29)
[2016-10-10] MEDS: CIPROFLOXACIN INJ 400 MG in PREMIX 1 EACH IV SCH ×2 (05:44→18:27)
[2016-10-10] MEDS: amLODIPine 10 MG TABLET PO SCH (09:21)
[2016-10-10] MEDS: hydrALAZINE 10 MG TABLET PO SCH ×4 (09:21→21:12)
[2016-10-10] MEDS: SODIUM CHLORIDE 0.9% 1,000 ML IV SCH ×3 (09:25→23:59)
--- NOTE | 2016-10-10 15:51 | Hospitalist Progress Note ---
Assessment and Plan (1) Abdominal pain Status: Acute Assessment and plan: GI assisting Attempting to get records from [place] On cipro and flagyl small bowel x-ray without abnormality Pain is now improved, but patient is also still on IV abx Current Visit: Yes (2) Hypertension Status: Chronic Assessment and plan: Home meds Current Visit: No (3) Intractable nausea and vomiting Status: Resolved Current Visit: No (4) Ankylosing spondylitis Status: Acute Current Visit: Yes (5) Acute renal failure Status: Acute Assessment and plan: Improved with IV hydration Current Visit: Yes Hospitalist: Subjective Interval history: No acute events overnight. Patient reports the abdominal pain is still there but now very dull. He has been ambulating around the halls. Exam - Constitutional Vitals: Period Temp Pulse Resp BP Sys/Bradley Pulse Ox Last 24 Hr 97.0 F-98.3 F 60-68 14-20 143-161/82-97 91-95 General appearance: normal weight - Head Head exam: Present: normocephalic, atraumatic - Eye Eye exam: Present: EOMI Pupils: Present: JOANNE - ENT ENT exam: Present: normal exam - Neck Neck exam: Present: normal inspection. Absent: thyromegaly - Respiratory Respiratory exam: Present: clear to auscultation bilaterally. Absent: rhonchi, wheezes - Cardiovascular Cardiovascular exam: Present: regular rate and rhythm - GI/Abdominal GI/Abdominal exam: Present: normal bowel sounds, soft. Absent: tenderness, rebound - Extremities Exam Extremities exam: Present: normal inspection - Back Exam Back exam: Present: normal inspection - Neurological Exam Neurological exam: Present: alert, oriented X3 - Psychiatric Psychiatric exam: Present: normal affect, normal mood - Skin Skin exam: Present: warm, intact Results - Labs CBC & BMP: 10/08/16 07:01 10/09/16 05:45
[2016-10-10] MEDS: ENOXAPARIN 40 MG/0.4 ML SYRINGE SUBCUT SCH (17:30)
[2016-10-10] MEDS: PANTOPRAZOLE 40 MG TABLET PO SCH (21:12)
[2016-10-11] MEDS: metroNIDAZOLE INJ 500 MG in PREMIX 1 EACH IV SCH ×2 (01:27→09:27)
[2016-10-11] MEDS: CIPROFLOXACIN INJ 400 MG in PREMIX 1 EACH IV SCH (06:22)
--- NOTE | 2016-10-11 08:44 | Gastrointestinal Progress Note ---
<ZahraJessie Tucker - Last Filed: 10/11/16 08:39> Assessment and Plan (1) Abdominal pain Status: Acute Assessment and plan: 10/11-Pain resolved, tolerating diet. Afebrile. For possible discharge home. Plan and addendum to follow by Dr Hernandez. 10/08-continued improvement in abdominal pain at this time. Small bowel x-ray is pending for this morning. Records are also still pending from [place]. Plan an addendum to follow Dr. Hernandez. 10/07-abdominal pain improved at this time. No further nausea or vomiting since last night. Tolerating small amounts of diet. Records still pending from [place]. Continue IV antibiotics at this time. Plan an addendum to follow Dr. Hernandez. 10/06-2 day history of abdominal pain with associated nausea vomiting and intractable diarrhea over the last [address] findings noted as below. Reports prior history of this 4 over the past year and a half. Endoscopy done at [place] over the past year. Afebrile without leukocytosis at present time. Obtain endoscopy records from [place]. Further plan an addendum follow Dr. Hernandez. Gastroenterology - PN: Subj Interval history: CC: Abd pain Pt is seen awake and alert with family at bedside. States he is feeling much better today and had a good weekend. Denies any abdominal pain, nausea or vomiting. He is tolerating his diet well. Denies any diarrhea stools. He is afebrile. Abdomen is soft, nontender. Pt is for possible discharge home today after discussing case with Dr Thompson. Discussed with pt that at first onset of symptoms returning he needs to call Dr Hernandez. Also discussed with pt, per their inquiry, that they may also seek a consult to [facility] in the event of reoccurrence, with this being his 3rd to 4th relapse of these symptoms, to pursue further evaluation of his small bowel if they so desire. Pt IBD panel is pending at this time. ROS: Denies SOB or chest pain Exam (Progress Note) - Constitutional Vitals: Period Temp Pulse Resp BP Sys/Bradley Pulse Ox Last 24 Hr 98 F-98.5 F 61-68 14-20 128-165/76-94 94-98 General appearance: normal weight, no acute distress - Head Head exam: Present: normal inspection, normocephalic - Eye Eye exam: Present: other (lids and conjunctiva unremarkable). Absent: scleral icterus - ENT ENT exam: Present: normal exam, normal oropharynx - Neck Neck exam: Present: normal inspection - Respiratory Respiratory exam: Present: clear to auscultation bilaterally. Absent: rales, rhonchi, wheezes - Cardiovascular Cardiovascular exam: Present: regular rate and rhythm. Absent: diastolic murmur , JVD, systolic murmur - GI/Abdominal GI/Abdominal exam: Present: normal bowel sounds, soft. Absent: ascites, distended, mass, organomegaly, tenderness - Extremities Exam Extremities exam: Present: normal inspection, full ROM - Back Exam Back exam: Present: normal inspection - Neurological Exam Neurological exam: Present: alert, oriented X3 - Psychiatric Psychiatric exam: Present: normal affect, normal mood - Skin Skin exam: Present: normal color, warm, dry Results - Labs CBC & BMP: 10/08/16 07:01 10/09/16 05:45 Lab Results: I have reviewed the past 24 hour labs <Gerson Hernandez - Last Filed: 10/11/16 21:34> Exam (Progress Note) - Constitutional Vitals: Period Temp Pulse Resp BP Sys/Bradley Pulse Ox Last 24 Hr 97.4 F-98.4 F 61-74 18-20 128-162/76-95 96-98 Results - Labs CBC & BMP: 10/08/16 07:01 10/09/16 05:45
[2016-10-11] MEDS ORDERED: Etanercept [Enbrel] 50 MG SUBCUT SCH (09:00)
--- NOTE | 2016-10-11 09:06 | Discharge Summary ---
<Elza Estevezda - Last Filed: 10/11/16 08:52> Hospital Course - Hospital Course Hospital Course: This is a 48-year-old male that presented to the ED at [facility] on October 06, 2016 for the evaluation of abdominal pain, nausea, vomiting, and diarrhea. The patient has a medical history significant for hypertension, ankylosing spondylosis, myocardial infarction, gastroesophageal reflux disease, and cardiovascular disease. Patient surgical history significant for pacemaker placement, colonoscopy, and esophagogastroduodenoscopy. Patient reported the onset of symptoms 3 days prior to presentation. He reported a sudden onset of abdominal pain that started on October 04; with the progression of symptoms including nausea, vomiting , and diarrhea on October 05, 2016. In addition, the patient reported decreased appetite, chest tightness, palpitations, weakness, diaphoresis, and near syncope. The patient became alarmed due to the severity of the symptoms and decided to present to the ED for further. evaluation. The patient was assessed at the time of ED presentation. Hematology panel was essentially unremarkable. Chemistry panel reported sodium 139, potassium 3.7, chloride 109, BUN 27, creatinine 2.40, total bili 0.90, AST 16, ALT 15, alkaline phosphatase 75, lipase was 66. CT abdomen and pelvis reported multiple abnormalities including: multiple segments of small bowel demonstrate presence of bowel wall thickening involving what appears to represent jejunum, additionally loops of ileum ,associated possibly with this free fluid is noted within the leaves of the mesentery as well as lies adjacent the margins of the liver, there may be some inflammatory changes of the mesentery, borderline lymph nodes are present within the mesentery, differential considerations are broad and include enteritis, inflammatory bowel disease, possibly celiac disease , ischemia, Waldenstrom's macroglobulinemia, amyloidosis, and lymphoma. The patient was subsequently admitted to the hospitalist service for continuation of care. Empiric antibiotic coverage, bowel rest, protein pump inhibitors, and gentle rehydration was initiated at the time of admission. A gastroenterology consultation was requested. The patient was seen, evaluated and recommendations were given. He was started on IV ciprofloxacin and IV flagyl. On October, the patient underwent small bowel series which was essentially unremarkable. In addition, inflammatory bowel disease panel was ordered to assess for underlying Crohn's disease. The patient's symptoms gradually improved. The patient's condition is stable. He has been ambulating around the halls without incident. The patient has not experienced any significant overnight events. The patient's vital signs are stable. 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 Discharge Plan - Discharge Data Disposition: Disch To Home/Self Care - Discharge Medications New Hydrocodone/Acetaminophen [Burdett 10-325 Tablet] 1 each PO Q6H #20 tablet Continue Etanercept [Enbrel] 50 mg SUBCUT MO HYDROcodone/ACETAMIN 10-325 [Burdett 10-325] 1 tablet PO Q4H PRN PRN Reason: Pain Omeprazole 20 mg PO BID amLODIPine [Norvasc] 10 mg PO QAM hydrALAZINE TAB [Apresoline Tab] 10 mg PO QID Meloxicam [Mobic] 15 mg PO QAM Lisinopril 40 mg PO QAM hydroCHLOROthiazide [Hydrochlorothiazide] 25 mg PO QAM - Follow Up or Referral - Forms/Instructions Exam - Constitutional Vitals: Period Temp Pulse Resp BP Sys/Bradley Pulse Ox Last 24 Hr 98 F-98.5 F 61-68 14-20 128-165/76-94 94-98 Discharge Results Procedures and tests throughout hospitalization: Pending Orders 10/08/16 18:34 PROMETHEUS IBD sgi Diagnositic Stat DS: Provider Date of admission: 10/06/16 15:13 Primary care physician: Saran Toledo Attending physician on admission: Lila French MD Consults: 10/06/16 15:25 Consult to Physician [CONS] Routine Comment: IBD? Consulting Provider: Gerson Hernandez Consult to Specialist Group: Gastroenterology When should Consulting Provider be notified: Now Person Notified: Whitney Date Notified: 10/06/16 Time Notified: 16:45 10/06/16 15:29 Consult to Case Mgmt/Social Srvs [CONS] Routine Reason for Case Mgmt/Social Srvs: Discharge Planning 10/06/16 16:49 Consult to Pastoral Services [CONS] Routine Comment: Pastoral Screen: Request Move Coordinator Visit Discharging clinician: Lisa Estevez CNP <Jose Thompson - Last Filed: 10/11/16 09:44> Hospital Course - Time spent with patient Time with patient DS: Greater than 30 minutes (40) Diagnosis - Discharge Diagnosis (1) Abdominal pain Status: Resolved (2) Hypertension Status: Chronic (3) Intractable nausea and vomiting Status: Resolved (4) Ankylosing spondylitis Status: Chronic (5) Acute renal failure Status: Resolved Discharge Plan - Discharge Data Condition at Discharge: Stable Discharge Diet: advance to your usual diet Activity: increase activity as tolerated Hygiene: no restrictions Weight Bearing at Discharge: weight bear as tolerated Driving: no restrictions Contact your physician if you experience:: fever over 101, Nausea/Vomiting Exam - Constitutional General appearance: normal weight - Head Head exam: Present: normocephalic, atraumatic - Eye Eye exam: Present: EOMI Pupils: Present: JOANNE - ENT ENT exam: Present: normal exam - Neck Neck exam: Present: normal inspection - Respiratory Respiratory exam: Present: clear to auscultation bilaterally. Absent: rhonchi, wheezes - Cardiovascular Cardiovascular exam: Present: regular rate and rhythm - GI/Abdominal GI/Abdominal exam: Present: normal bowel sounds, soft. Absent: tenderness, rebound - Extremities Exam Extremities exam: Present: normal inspection - Back Exam Back exam: Present: normal inspection - Neurological Exam Neurological exam: Present: alert, oriented X3 - Psychiatric Psychiatric exam: Present: normal affect, normal mood - Skin Skin exam: Present: warm, intact
[2016-10-11] MEDS: amLODIPine 10 MG TABLET PO SCH (09:26)
[2016-10-11] MEDS: hydrALAZINE 10 MG TABLET PO SCH ×2 (09:26→13:28)
[2016-10-11 12:26] VITALS: BP 162/92
[2016-10-11] MEDS: SODIUM CHLORIDE 0.9% 1,000 ML IV SCH (13:28)
--- NOTE | 2016-10-20 08:16 | Physician Query Form ---
CLICK EDIT DOCUMENT TO SELECT QUERY ANSWER --> OK --> SIGN PROVIDERS: Make your selection(s) from the choices in EACH section by typing an "x" and enter comments in the comment section. Please use your independent medical judgment in providing your response. This request does not imply that any particular answer is desired or expected. CLINICAL INDICATORS: (Providers should not edit this section) Findings: [facility] Laboratory Findings The medical record indicates that the patient was admitted with abd pain, lab test from "[facility]" is showing (X) Pattern Consistent with IBD" (x) Crohn's Disease. Abnormal [facility] Laboratory Findings are not reported unless an authorized provider indicates their clinical significance Please select the best choice: (x ) I agree with the [facility] Findings ( ) I disagree with the [facility] Findings ( ) No clinical significance ( ) Other/clarification of findings, please specify: ( ) Clinically unable to determine COMMENTS: PLEASE ALSO DOCUMENT RESPONSE IN PROGRESS NOTES AND/OR DISCHARGE SUMMARY Use of terms such as suspected, likely, or probable (associated with a specific diagnosis that is being evaluated, monitored, or treated as if it exists) are acceptable and can be restated in the discharge summary if not ruled out. [facility]
== END 2016-10-11 13:45 | disposition home or self-care (01) | DRG 386 ==
LOC: N.ED 11:18 → N.EDINP 15:13 → SUATTDRO 15:13 → N.EDINP 16:14 → N.5E 16:26
PROVIDERS: ADMIT Internal Medicine; ATTEND Internal Medicine

== ENCOUNTER 2016-11-01 01:37 | Inpatient (IN) ==
[2016-11-01] MEDS ORDERED: ONDANSETRON 4 MG/2 ML VIAL IV STA (02:46)
[2016-11-01] MEDS ORDERED: MORPHINE 2 MG/1 ML SYRINGE IV STA (02:47)
--- NOTE | 2016-11-01 03:00 | EKG Report ---
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
--- NOTE | 2016-11-01 03:09 | Emergency Department Note ---
Arrival - Arrival Chief Complaint: Abdominal / Flank Pain Stated Complaint: ABD PAIN ED Nursing Triage Note: Patient to ED via EMS with c/o LLQ ABD pain that was been going on for several days but worse tonight. Patient reports nausea and diarrhea 15 mins [employer]. Mode of Arrival: Stretcher Time Seen by Provider: 11/01/16 01:43 - History of Present Illness HPI Narrative: This is a 56-year-old male of descent with a history of hypertension, ankylosing spondylitis, myocardial infarction, pacer placement and abdominal pain with nausea vomiting diarrhea who was admitted to the hospital this month for evaluation which did not include endoscopy and colonoscopy with biopsies because that was done in 2011 and the Bx did not show inflammatory bowel disease. However during the recent admission he had a CT scan showed thickening of multiple segments of small bowel and where the differential diagnoses include inflammatory bowel disease regional enteritis celiac disease bowel ischemia amyloidosis or lymphoma. The patient returns because of ongoing abdominal pain which is diffuse associated with nausea vomiting and diarrhea. The patient is taking Hydrocodone/Acetaminophen [[place] 10-325 Tablet] 1 each PO Q6H, Etanercept [Enbrel] 50 mg SUBCUT monthly for his ankylosing spondylitis, Omeprazole 20 mg PO BID, amLODIPine [Norvasc] 10 mg PO QAM, hydrALAZINE TAB [ Apresoline Tab] 10 mg PO QID, Meloxicam [Mobic] 15 mg PO QAM, Lisinopril 40 mg PO QAM, hydroCHLOROthiazide 25 mg PO QAM. Allergies/Adverse Reactions: Allergies Allergy/AdvReac Type Severity Reaction Status Date / Time rifampin [From Rimactane] Allergy ANAPHYLAXIS Verified 11/01/16 01:43 Home Medications: Home Medications Medication Instructions Recorded Confirmed Type Etanercept [Enbrel] 50 mg SUBCUT MO 03/28/15 10/06/16 History HYDROcodone/ACETAMIN 10-325 [[place] 1 tablet PO Q4H PRN 03/28/15 10/06/16 History 10-325] Omeprazole 20 mg PO BID 03/28/15 10/06/16 History Meloxicam [Mobic] 15 mg PO QAM 10/19/15 10/06/16 History amLODIPine [Norvasc] 10 mg PO QAM 10/19/15 10/06/16 History hydrALAZINE TAB [Apresoline Tab] 10 mg PO QID 10/19/15 10/06/16 History Lisinopril 40 mg PO QAM 10/06/16 10/06/16 History hydroCHLOROthiazide 25 mg PO QAM 10/06/16 10/06/16 History [Hydrochlorothiazide] Hydrocodone/Acetaminophen [[place] 1 each PO Q6H #20 tablet 10/11/16 Rx 10-325 Tablet] Review of System - Review of System Constitutional: Absent: fever, night sweats Eyes: Absent: redness, vision change Head/Ears/Nose/Throat: Absent: epistaxis, nasal drainage Respiratory: Absent: respiratory distress, wheezing Cardiovascular: Absent: dyspnea on exertion, orthopnea Gastrointestinal: Present: abdominal pain, nausea, vomiting, diarrhea Genitourinary male: Absent: hematuria, discharge Musculoskeletal: Absent: joint swelling, lower back pain Skin: Absent: change in color, change in hair/nails, pruritus Neurological: Absent: numbness, paresthesias Psychiatric: Absent: anxiety, depression Endocrine: Absent: heat intolerance, polydipsia, polyuria Hematological/Lymphatic: Absent: easy bruising, lymphadenopathy Allergic/Immunologic: Absent: urticaria, itchy eyes Medical,Surgical,& Family Hx - Medical History Cardio: History of: Hypertension, [place], Pacemaker (3 years ago) Psychological: No history of: Anxiety Disorders, ADHD, Behavior Problems, Bipolar Disorder, Depression, Previous Suicide Attempt, Psychiatric/Substance Abuse Tx, Schizophrenia, Violent Behavior, Psychiatric Problems HEENT: History of: Eye Problem (poor vision?) Endocrine: No history of: Diabetes Mellitus (NIDDM) Rheumatology: History of;: Rheumatological Problems (arthritis) Gastrointestinal: History of: GERD - Surgical History Cardiac Surgeries: Sugical HX of: Cardiac Surgery, Vascular Access Devices Patient Denies: Cardiac Catheterization Abdominal Surgeries: Surgical HX of: Colonoscopy, EGD - Family History Family History: Reports;: Family Cancer (sister), Family Diabetes (father), Family Hypertension ("everybody") Denies;: Family Anesthesia Reaction, Family Heart Disease, Family Psychiatric Problems, Family Stroke - Social History Smoking Status: Never smoker Frequency of Alcohol Use: None Type of Drug Use: None Exam Vital Signs: Vital Signs Temperature 98.7 F 11/01/16 01:38 Pulse Rate 75 11/01/16 01:38 Respiratory Rate 22 11/01/16 01:38 Blood Pressure 118/82 11/01/16 01:38 O2 Sat by Pulse Oximetry 99 11/01/16 01:38 - General Exam limited due to: ALOC - Head Head exam: Present: atraumatic, normocephalic - Eye Eye exam: Present: PERRL, EOMI - ENT ENT exam: Present: normal exam, normal oropharynx - Neck Neck exam: Present: normal inspection, full ROM - Chest Chest inspection: Present: normal inspection - Respiratory Respiratory exam: Present: normal lung sounds bilaterally - Cardiovascular Cardiovascular exam: Present: regular rate, normal rhythm - Abdominal Exam Abdominal exam: Present: other (The abdomen is diffusely tender without guarding or rebound) - Extremities Exam Extremities exam: Present: normal inspection, full ROM - Back Exam Back exam: Present: normal inspection, full ROM - Neurological Exam Neurological exam: Present: alert, oriented X3, CN II-XII intact - Psychiatric Psychiatric exam: Present: normal affect, normal mood - Skin Skin exam: Present: warm, dry Course Course Narrative: The patient has ankylosing spondylitis on Enbrel and his abdominal symptoms may be a sign of inflammatory bowel disease although his most recent colonoscopy and endoscopy with biopsy done in 2011 was not consistent with inflammatory bowel disease. Because the possibility of inflammatory bowel disease was entertained the patient will be admitted to the hospital for pain management and for gastroenterology consultation to consider the possibility of inflammatory bowel disease. Results - Labs CBC & BMP: 11/01/16 03:35 11/01/16 03:35
[2016-11-01] MEDS ORDERED: MORPHINE 2 MG/1 ML SYRINGE ONE (03:53)
[2016-11-01] MEDS ORDERED: ONDANSETRON 4 MG/2 ML VIAL ONE (03:53)
[2016-11-01 03:57] LABS: Basophils # 0.1 10*3/uL (0.0-0.2); Basophils % 0.4 % (0.0-0.8); Eosinophils % 0.2 % (0.00-10.9); Hematocrit 51.2 VOL% (42.0-52.0); Hemoglobin 17.8 GM/DL (14.0-18.0); Immature Granulocytes % 0.5 %; Immature Granulocytes Absolute 0.06 #; Lymphocytes # 2.3 10*3/uL (1.4-4.0); Lymphocytes % 18.3 % (21.2-54.2); Mean Corpuscular HGB Conc 34.8 GM/DL (32-36); Mean Corpuscular Hemoglobin 31 PG (27-34); Mean Corpuscular Volume 90.5 FL (87-102); Mean Platelet Volume 12.1 FL (9.6-12.0); Monocytes # 0.6 10*3/uL (0.11-0.8); Monocytes % 4.9 % (1.7-12.7); Neutrophils # 9.3 10*3/uL (1.4-7.4); Neutrophils % 75.7 % (38.7-73.9); Platelet Count 215 T/CUMM (130-400); Red Blood Count 5.66 MC/CUMM (3.8-5.5); White Blood Count 12.3 T/CUMM (4-12)
[2016-11-01] MEDS ORDERED: SODIUM CHLORIDE 0.9% 1,000 ML IV STA (04:15)
[2016-11-01 04:17] LABS: Alanine Aminotransferase 32 U/L (16-61); Albumin 3.8 G/DL (3.4-5.0); Alkaline Phosphatase 87 U/L (45-117); Aspartate Amino Transferase 17 U/L (0-37); Blood Urea Nitrogen 25 MG/DL (7-18); Calcium 9.6 MG/DL (8.5-10.1); Glucose 130 MG/DL (74-106); Lactic Acid 1.5 MMOL/L (0.4-2.0); Osmolality,Calculated 275.1 MOS/KG (273-304); Potassium 3.7 MMOL/L (3.5-5.1); Sodium 135 MMOL/L (136-145); Total Protein 9.8 G/DL (6.4-8.3); Troponin I Only < 0.015 NG/ML (0.00-0.045)
--- NOTE | 2016-11-01 06:18 | Hospitalist History & Physical ---
Assessment and Plan - Time spent with patient Time spent with patient: Greater than 30 minutes (1) GERD (gastroesophageal reflux disease) Status: Chronic Assessment and plan: Will continue on PPI Current Visit: No (2) Hypertension Status: Chronic Assessment and plan: Will continue medication regimen and monitor accordingly. Current Visit: No (3) Abdominal pain Status: Acute Assessment and plan: Will not rescan at this time. We will ask GI to see him and decide on diagnostics We will make n.p.o. for now. Fluids for hydration Pain and nausea management as needed. We will consult GI Current Visit: Yes History of Present Illness Chief complaint: abdominal pain History of present illness: Called to the ER for Mr. Jordan who is a 56 year old male that presents this morning with diffuse abdominal pain. Pain started approximately three weeks ago and got worse last night. at the bedside describes "episodes" to where he is out of it, his eyes roll back in his head, and he does not answer her. He admits to diarrhea for the past two days and vomiting that started this AM along with chills and shortness of breath. He denies any chest pain, hematuria, hematemesis, or melena. Patient states that after eating and laying on either side makes the pain worse but nothing makes the pain better. He was admitted on the first of this month for same complaint. GI was consulted. Initial CT revealed inflammatory changes of mesentery and small bowel wall thickening. CT was followed with a small bowel series that did not support same results as the CT. Inflammatory bowel pattern resulted in crohn's disease. Patient was discharged home for follow-up with GI and primary physician. Patient has a history of HTN, [place] s\\p pacemaker placement, ankylosing spondylosis , and GERD. Home Medications Medication Instructions Recorded Confirmed Type Etanercept [Enbrel] 50 mg SUBCUT MO 03/28/15 10/06/16 History HYDROcodone/ACETAMIN 10-325 [[place] 1 tablet PO Q4H PRN 03/28/15 10/06/16 History 10-325] Omeprazole 20 mg PO BID 03/28/15 10/06/16 History Meloxicam [Mobic] 15 mg PO QAM 10/19/15 10/06/16 History amLODIPine [Norvasc] 10 mg PO QAM 10/19/15 10/06/16 History hydrALAZINE TAB [Apresoline Tab] 10 mg PO QID 10/19/15 10/06/16 History Lisinopril 40 mg PO QAM 10/06/16 10/06/16 History hydroCHLOROthiazide 25 mg PO QAM 10/06/16 10/06/16 History [Hydrochlorothiazide] Hydrocodone/Acetaminophen [[place] 1 each PO Q6H #20 tablet 10/11/16 Rx 10-325 Tablet] Allergies Allergy/AdvReac Type Severity Reaction Status Date / Time rifampin [From Rimactane] Allergy ANAPHYLAXIS Verified 11/01/16 01:43 Medical,Surgical,& Family Hx - Medical History Cardio: History of: Hypertension, [place], Pacemaker (3 years ago) Psychological: No history of: Anxiety Disorders, ADHD, Behavior Problems, Bipolar Disorder, Depression, Previous Suicide Attempt, Psychiatric/Substance Abuse Tx, Schizophrenia, Violent Behavior, Psychiatric Problems Neurology: No history of: Neurological Problems HEENT: History of: Eye Problem (poor vision?) Endocrine: No history of: Diabetes Mellitus (NIDDM) Rheumatology: History of;: Rheumatological Problems (arthritis) Respiratory: No history of: Respiratory Problems Renal: No history of: Renal Problems Genitourinary: No history of: Problems Gastrointestinal: History of: GERD Musculoskeletal: History of: Musculoskeletal Problems (Ankylosing Spondylosis) - Surgical History Cardiac Surgeries: Sugical HX of: Cardiac Surgery, Vascular Access Devices Patient Denies: Cardiac Catheterization Abdominal Surgeries: Surgical HX of: Colonoscopy, EGD - Family History Family History: Reports;: Family Cancer (sister), Family Diabetes (father), Family Hypertension ("everybody"), Family Stroke (Mother), Additional Family History (Kidney disease-brother) Denies;: Family Anesthesia Reaction, Family Heart Disease, Family Psychiatric Problems - Social History Smoking Status: Never smoker Frequency of Alcohol Use: None Type of Drug Use: None - Constitutional Constitutional: Present: chills, lethargy. Absent: excessive sweating, fatigue , fever(s) - Cardiovascular Cardiovascular: Present: dyspnea. Absent: chest pain at rest, chest pain with activity, edema, palpitations - Respiratory Respiratory: Present: dyspnea. Absent: cough - Gastrointestinal Gastrointestinal: Present: abdominal pain, heartburn, loose stools. Absent: bloating, change in bowel habits, coffee ground emesis, constipation, diarrhea, hematemesis, hematochezia, melena, nausea, vomiting - Genitourinary Genitourinary: Absent: difficulty urinating, dysuria - Musculoskeletal Musculoskeletal: Absent: back pain Exam - Constitutional Vitals: Period Temp Pulse Resp BP Sys/Bradley Pulse Ox Last 24 Hr 98.7 F-98.7 F 75-75 22-22 118-118/82-82 99 General appearance: normal weight, no acute distress - Head Head exam: Present: normal inspection, normocephalic - Eye Eye exam: Present: EOMI, conjunctival injection Pupils: Present: JOANNE - ENT ENT exam: Present: normal exam, normal external ear exam - Neck Neck exam: Present: normal inspection - Respiratory Respiratory exam: Present: clear to auscultation bilaterally. Absent: accessory muscle use, chest wall tenderness (Respirations even and unlabored. Symmetrical rise and fall of chest.) - Cardiovascular Cardiovascular exam: Present: regular rate and rhythm - GI/Abdominal GI/Abdominal exam: Present: firm, hyperactive bowel sounds, hernia (Umbilical), tenderness (Diffuse) - Extremities Exam Extremities exam: Present: normal inspection, normal capillary refill, full ROM - Back Exam Back exam: Present: normal inspection - Neurological Exam Neurological exam: Present: alert, oriented X3 (Answers questions appropriately. Follows all commands. Maintains good eye contact.) - Psychiatric Psychiatric exam: Present: normal affect, normal mood - Skin Skin exam: Present: normal color, warm, dry Results - Labs CBC & BMP: 11/01/16 03:35 11/01/16 03:35 Lab Results: I have reviewed the past 24 hour labs
[2016-11-01] MEDS ORDERED: NON-FORMULARY MEDICATION (Etanercept [Enbrel] 50 MG) SUBCUT SCH (06:41)
[2016-11-01] MEDS ORDERED: ACETAMINOPHEN 325 MG TABLET PO PRN (06:41)
[2016-11-01] MEDS ORDERED: DOCUSATE SODIUM 100 MG CAPSULE PO PRN (06:41)
[2016-11-01] MEDS ORDERED: ONDANSETRON 4 MG/2 ML VIAL IV PRN (06:41)
[2016-11-01] MEDS: SODIUM CHLORIDE 0.9% 1,000 ML IV SCH ×3 (07:02→19:51)
[2016-11-01] MEDS: MORPHINE 2 MG/1 ML SYRINGE IV PRN ×2 (08:31→19:50)
[2016-11-01 09:12] LABS: Apearance,Urine CLOUDY (Clear); Bilirubin,Urine Negative (Negative); Blood, Urine Negative (Negative); Glucose,Urine (UA) Negative (Negative); Hyaline Casts,Urine 5 /LPF (0-3); Ketones,Urine Negative (Negative); Mucus,Urine Occasional /LPF (Occasional); Nitrite,Urine Negative (Negative); Protein,Urine 30 MG/DL; RBC,Urine 5 /HPF (0-4); Squamous Epithelial Cell,Urine Occasional /HPF (0-10); Urine Color Amber (Yellow); Urine Specific Gravity 1.019 (1.001-1.035); WBC,Urine 19 /HPF (0-6)
--- NOTE | 2016-11-01 11:14 | Gastrointestinal Consult Note ---
<Jessie Sweeney - Last Filed: 11/01/16 11:08> Assessment and Plan (1) Abdominal pain Status: Acute Assessment and plan: 11/01-severe intractable abdominal pain with associated nausea, vomiting and diarrhea last night. Recent admission for very similar presentation with improvements following IV therapy and negative small bowel series. [facility] endoscopy records received and most recent endoscopy noted as below. Leukocytosis on admission, afebrile. No IV antibiotics noted at this time. Continue to monitor. Plan an addendum to follow by Dr. Hernandez. Current Visit: Yes History of Present Illness Chief complaint: Abdominal pain, nausea, vomiting, diarrhea History of present illness: Mr. Jordan is a 56 year old male who was admitted to the hospital earlier this morning for severe abdominal pain. Patient is accompanied by his at bedside and contributes to health history. Patient was admitted to our facility earlier this month for complaints of ongoing abdominal pain with nausea vomiting. Patient reported that time that being the fourth episode of pain of that nature since March of last year with prior workup done at [facility] for this. During that admission, he had a CT of the abdomen without contrast which showed multiple segments of small bowel wall thickening around the jejunum as well as additional loops of the ileum and inflammatory changes in the mesentery with borderline lymph nodes. He was afebrile without leukocytosis during that admission. He had stated during that time he had a previous workup done at [facility] regarding this pain however those records were never received during that admission. He did have a small bowel x-ray done with no evidence of abnormality. He had good response to IV antibiotics and pain resolved prior to admission. He also had an IBD panel drawn which results are located at this time. Patient's records did return following his discharge he was noted to have an EGD done 2010 with only findings of gastritis as well as an colonoscopy in 2011 with findings of diverticulosis and polyps ( hyperplastic, tubular adenoma). He states that since discharge, the pain is never fully gone away however he has managed it up until this point. On last night, he had a severe episode of the pain that was diffuse across his abdomen with onset of nausea and vomiting as well as diarrhea. Denies any melena or hematochezia with this. Denies any coffee-ground or hematemesis with this. Denies any fever or chills. States the pain is never been this severe. Patient 's states that he "completely zoned out" and they felt like he was going to "" last night due to the pain. Patient is noted to have mild leukocytosis with WBCs at 12,000 on admission. Lactic acid is unremarkable 1.5. Lipase at 148. No repeat CT was done on this admission. Home Medications Medication Instructions Recorded Confirmed Type Etanercept [Enbrel] 50 mg SUBCUT MO 03/28/15 11/01/16 History HYDROcodone/ACETAMIN 10-325 [[place] 1 tablet PO TID PRN 03/28/15 11/01/16 History 10-325] Omeprazole 20 mg PO DAILY 03/28/15 11/01/16 History amLODIPine [Norvasc] 10 mg PO QAM 10/19/15 11/01/16 History hydrALAZINE TAB [Apresoline Tab] 10 mg PO QID 10/19/15 11/01/16 History Lisinopril 40 mg PO QAM 10/06/16 11/01/16 History hydroCHLOROthiazide 25 mg PO QAM 10/06/16 11/01/16 History [Hydrochlorothiazide] Allergies Allergy/AdvReac Type Severity Reaction Status Date / Time rifampin [From Rimactane] Allergy ANAPHYLAXIS Verified 11/01/16 01:43 Medical,Surgical,& Family Hx - Medical History Cardio: History of: Hypertension, [place], Pacemaker (3 years ago) Psychological: No history of: Anxiety Disorders, ADHD, Behavior Problems, Bipolar Disorder, Depression, Previous Suicide Attempt, Psychiatric/Substance Abuse Tx, Schizophrenia, Violent Behavior, Psychiatric Problems Neurology: No history of: Neurological Problems HEENT: History of: Eye Problem (poor vision?) Endocrine: No history of: Diabetes Mellitus (NIDDM) Rheumatology: History of;: Rheumatological Problems (arthritis) Respiratory: No history of: Respiratory Problems Renal: No history of: Renal Problems Genitourinary: No history of: Problems Gastrointestinal: History of: GERD Musculoskeletal: History of: Musculoskeletal Problems (Ankylosing Spondylosis) - Surgical History Cardiac Surgeries: Sugical HX of: Cardiac Surgery, Vascular Access Devices Patient Denies: Cardiac Catheterization Abdominal Surgeries: Surgical HX of: Colonoscopy, EGD - Family History Family History: Reports;: Family Cancer (sister), Family Diabetes (father), Family Hypertension ("everybody"), Family Stroke (Mother), Additional Family History (Kidney disease-brother) Denies;: Family Anesthesia Reaction, Family Heart Disease, Family Psychiatric Problems - Social History Smoking Status: Never smoker Frequency of Alcohol Use: None Type of Drug Use: None 12 point system: reviewed and no additional remarkable complaints except as stated - Constitutional Constitutional: Present: as per HPI - EENT Eyes: Present: as per HPI Ears: Present: as per HPI Nose, mouth and throat: Present: as per HPI - Cardiovascular Cardiovascular: Present: as per HPI - Respiratory Respiratory: Present: as per HPI - Gastrointestinal Gastrointestinal: Present: as per HPI, abdominal pain, diarrhea, nausea, vomiting - Genitourinary Genitourinary: Present: as per HPI - Musculoskeletal Musculoskeletal: Present: as per HPI - Neurological Neurological: Present: as per HPI - Psychiatric Psychiatric: Present: as per HPI - Endocrine Endocrine: Present: as per HPI - Hematologic/Lymphatic Hematologic/Lymphatic: Present: as per HPI Exam - Constitutional Vitals: Period Temp Pulse Resp BP Sys/Bradley Pulse Ox Last 24 Hr 97.2 F-98.7 F 62-75 18-22 103-118/64-82 93-100 General appearance: normal weight, no acute distress - Head Head exam: Present: normal inspection, normocephalic - Eye Eye exam: Present: other (Deniz Mauro unremarkable). Absent: scleral icterus - ENT ENT exam: Present: normal exam, normal oropharynx - Neck Neck exam: Present: normal inspection - Respiratory Respiratory exam: Present: clear to auscultation bilaterally. Absent: rales, rhonchi, wheezes - Cardiovascular Cardiovascular exam: Present: regular rate and rhythm. Absent: diastolic murmur , JVD, systolic murmur - GI/Abdominal GI/Abdominal exam: Present: normal bowel sounds, soft. Absent: ascites, distended, mass, organomegaly, tenderness - Extremities Exam Extremities exam: Present: normal inspection, full ROM - Back Exam Back exam: Present: normal inspection - Neurological Exam Neurological exam: Present: alert, oriented X3 - Psychiatric Psychiatric exam: Present: normal affect, normal mood - Skin Skin exam: Present: normal color, warm, dry Results - Labs CBC & BMP: 11/01/16 03:35 11/01/16 03:35 Lab Results: I have reviewed the past 24 hour labs <Gerson Hernandez - Last Filed: 11/01/16 17:27> History of Present Illness History of present illness: Mr. Jordan is a 56 year old male Exam - Constitutional Vitals: Period Temp Pulse Resp BP Sys/Bradley Pulse Ox Last 24 Hr 96.8 F-98.7 F 61-75 18-22 103-118/64-82 93-100 Results - Labs CBC & BMP: 11/01/16 03:35 11/01/16 03:35
[2016-11-01] MEDS: ENOXAPARIN 40 MG/0.4 ML SYRINGE SUBCUT SCH (12:10)
[2016-11-01] MEDS: hydrALAZINE 10 MG TABLET PO SCH ×4 (12:14→21:38)
[2016-11-01] MEDS ORDERED: BISACODYL 5 MG TABLET PO ONE (13:36)
[2016-11-01] MEDS ORDERED: POLYETHYLENE GLYCOL POWDER 255 GM BOTTLE PO ONE (14:00)
[2016-11-01] MEDS: MELOXICAM 7.5 MG TABLET PO SCH (14:26)
[2016-11-01] MEDS: hydroCHLOROthiazide 25 MG TABLET PO SCH (14:26)
[2016-11-01] MEDS: amLODIPine 10 MG TABLET PO SCH (14:26)
[2016-11-01] MEDS: LISINOPRIL 20 MG TABLET PO SCH (14:26)
[2016-11-01] MEDS: PANTOPRAZOLE 40 MG TABLET PO SCH (14:26)
--- NOTE | 2016-11-01 15:03 | Event Note ---
Patient was admitted with abdominal pain which he report has generalized and like cramps. He was admitted here earlier this month for similar pain and was given IV antibiotics after CT evaluation revealed multisegment bowel segments of small bowel wall thickening and possible free fluid and some inflammatory changes in the mesentery. Patient was given treatment with IV antibiotics and had a small bowel follow-through but did not reveal any abnormalities. Patient was discharged on 10/11 17 he did state that the pain was never gone but was worse last night and he has to come here for evaluation pain was so severe that he was almost passed out was associated with a loose bowel movement and vomiting. He has been on just liquid diet here and has no bowel movement for about 12 hours. Denies any fever. His belly seems to be soft with some discomfort but no rigidity or rebound bowel sounds present GI has seen and plan to colonoscopy in morning for evaluation. Although he has mild leukocytosis there is no fever he is on IV fluids I will just watch without any antibiotics will repeat the lab for follow-up and white count and hemoglobin hematocrit
[2016-11-01] MEDS ORDERED: MAGNESIUM CITRATE 300 ML BOTTLE PO ONE (21:00)
[2016-11-02] MEDS: MORPHINE 2 MG/1 ML SYRINGE IV PRN ×3 (03:05→20:17)
[2016-11-02] MEDS: SODIUM CHLORIDE 0.9% 1,000 ML IV SCH ×4 (03:05→22:21)
[2016-11-02 06:05] LABS: Basophils % 0.4 % (0.0-0.8); Eosinophils # 0.1 10*3/uL (0.0-0.87); Hematocrit 35.4 VOL% (42.0-52.0); Hemoglobin 12.1 GM/DL (14.0-18.0); Immature Granulocytes % 0.3 %; Immature Granulocytes Absolute 0.02 #; Lymphocytes # 2.2 10*3/uL (1.4-4.0); Lymphocytes % 31.3 % (21.2-54.2); Mean Corpuscular HGB Conc 34.2 GM/DL (32-36); Mean Corpuscular Hemoglobin 32 PG (27-34); Mean Corpuscular Volume 92.4 FL (87-102); Mean Platelet Volume 12.2 FL (9.6-12.0); Monocytes # 0.6 10*3/uL (0.11-0.8); Monocytes % 7.9 % (1.7-12.7); Neutrophils # 4.2 10*3/uL (1.4-7.4); Neutrophils % 58.1 % (38.7-73.9); Platelet Count 165 T/CUMM (130-400); Red Blood Count 3.83 MC/CUMM (3.8-5.5); Red Cell Distribution Width 12.2 % (9.3-17.3); White Blood Count 7.1 T/CUMM (4-12)
[2016-11-02 06:39] LABS: Albumin 2.6 G/DL (3.4-5.0); Bilirubin,Direct 0.2 MG/DL (0.0-0.20); Bilirubin,Indirect 0.4 MG/DL (0.0-1.0); Bilirubin,Total 0.6 MG/DL (0.2-1.0); Calcium 8.2 MG/DL (8.5-10.1); Osmolality,Calculated 285.3 MOS/KG (273-304); Potassium 3.8 MMOL/L (3.5-5.1); Total Protein 6.3 G/DL (6.4-8.3)
--- NOTE | 2016-11-02 09:18 | Physician Query Form ---
CLICK EDIT DOCUMENT TO SELECT QUERY ANSWER --> OK --> SIGN Gloria Christopher RN, CCDS Certified Clinical Plumber [employer] W) [phone] (f) [phone] [email or web address]: Make your selection(s) from the choices in EACH section by typing an "x" and enter comments in the comment section. Please use your independent medical judgment in providing your response. This request does not imply that any particular answer is desired or expected. CLINICAL INDICATORS: (Providers should not edit this section) The medical record indicates that the patient was admitted with abd pain, creatinine of 2.50# on the that has dropped to 2.00# on the , GFR OF 34 # that has increased to 44# on the and the patient was treated with NS. Clarify which of the following most accurately represents the patient's renal status: ( ) Acute kidney injury (non-traumatic) ( ) Acute renal failure ( ) Acute renal failure with underlying Chronic Kidney Disease (CKD) - please provide stage below ( ) Acute renal failure with pathological renal lesion ( ) Acute renal failure with necrosis ( ) tubular ( ) medullary ( ) cortical ( ) CKD - please provide stage below ( ) End Stage Renal Disease ( ) Acute interstitial nephritis ( ) Hepatorenal syndrome ( ) Other, please specify: ( ) Clinically unable to determine Chronic Kidney Disease Stages Source: National Kidney Disease Foundation ( ) Stage I (eGFR > or = 90) ( ) Stage II (eGFR 60 - 89) ( ) Stage III (eGFR 30 - 59) ( ) Stage IV (eGFR 15 - 29) ( ) Stage V (eGFR < 15 or dialysis) COMMENTS: PLEASE ALSO DOCUMENT RESPONSE IN PROGRESS NOTES AND/OR DISCHARGE SUMMARY Use of terms such as suspected, likely, or probable (associated with a specific diagnosis that is being evaluated, monitored, or treated as if it exists) are acceptable and can be restated in the discharge summary if not ruled out. MTDD
--- NOTE | 2016-11-02 10:55 | History and Physical Update ---
History and Physical Update - Physical Exam Mental Status: alert and oriented Heart: regular rate and rhythm Lung: clear to auscultation Abdomen: within normal limits Vitals: within normal limits
--- NOTE | 2016-11-02 10:58 | Operative Note ---
Date of procedure: 11/02/16 Pre-op diagnosis: Recurrent abdominal pain with nausea and vomiting suspicious for Crohn Procedure: Colonoscopy 56-year-old gentleman with recurrent complaints of abdominal pain with clinical suspicion for Crohn's now for colonoscopy to further evaluate. Informed symptoms obtained the patient He was sedated with MAC anesthesia per anesthesia protocol. Patient was placed in left lateral decubitus position digital exam was normal no rectal masses normal prostate. No fistula was identified. The Olympus flexible video colonoscope [place] canal vessel direct vision level cecum identify the ileocecal valve appendiceal orifice. Withdrawal time 7 minutes Prep fair with opaque fluid easily aspirated. Findings: Cecum-normal cecal mucosa identified by ileocecal valve and appendiceal orifice. Terminal ileum normal for 20 cm Ascending colon-normal Transverse colon-normal Descending colon-normal Sigmoid colon-normal Rectum-normal to direct retroflexed views. The procedure terminated placed our procedure well his discharge recovery in good condition. Postop diagnosis: 1. No evidence of Crohn's identified in the colon or terminal ileum. Will proceed with EGD and small bowel endoscopy in a.m. to try and establish tissue diagnosis. Anesthesia: MAC Surgeon / Physician: Gerson Hernandez Estimated blood loss: none Specimens: none sent Condition: stable Disposition: post procedure unit Results - Labs CBC & BMP: 11/02/16 05:35 11/02/16 05:35 Discharge Plan - Discharge Medications No Action Etanercept [Enbrel] 50 mg SUBCUT MO HYDROcodone/ACETAMIN 10-325 [[place] 10-325] 1 tablet PO TID PRN PRN Reason: Pain Omeprazole 20 mg PO DAILY amLODIPine [Norvasc] 10 mg PO QAM hydrALAZINE TAB [Apresoline Tab] 10 mg PO QID Lisinopril 40 mg PO QAM hydroCHLOROthiazide [Hydrochlorothiazide] 25 mg PO QAM - Follow Up or Referral - Forms/Instructions
[2016-11-02] MEDS ORDERED: PROPOFOL 200 MG/20 ML VIAL IV ONE (11:00)
[2016-11-02] MEDS ORDERED: LIDOCAINE 1% 5 ML VIAL ONE (11:00)
--- NOTE | 2016-11-02 11:00 | Anesthesia Post-Op ---
Anesthesia Post OP - Post Ansesthetic Evaluation Patient seen in post op: Yes Resp: within normal limits CV: within normal limits Mental: within normal limits Temp: within normal limits [id number]: within normal limits Nausea and Vomiting: within normal limits Pain: within normal limits
[2016-11-02] MEDS: ENOXAPARIN 40 MG/0.4 ML SYRINGE SUBCUT SCH (11:55)
[2016-11-02] MEDS: amLODIPine 10 MG TABLET PO SCH (11:55)
[2016-11-02] MEDS: MELOXICAM 7.5 MG TABLET PO SCH (11:56)
[2016-11-02] MEDS: LISINOPRIL 20 MG TABLET PO SCH (11:59)
[2016-11-02] MEDS: hydrALAZINE 10 MG TABLET PO SCH ×4 (11:59→20:17)
[2016-11-02] MEDS: hydroCHLOROthiazide 25 MG TABLET PO SCH (11:59)
[2016-11-02] MEDS: PANTOPRAZOLE 40 MG TABLET PO SCH (11:59)
--- NOTE | 2016-11-02 16:13 | Hospitalist Progress Note ---
Assessment and Plan (1) Abdominal pain Status: Acute Assessment and plan: Unsure of etiology at present GI following and plan to do EGD and enteroscopy tomorrow. Will keep follow on hemoglobin and hematocrit noted it is down from yesterday but could be because of the hydration status Current Visit: Yes (2) Hypertension Status: Chronic Assessment and plan: Controlled Current Visit: No (3) Acute renal failure Status: Acute Assessment and plan: Noted improvement of the renal function will keep hydrated I will stop NSAIDs noted patient was on both ELSY inhibitor and NSAID combination since L function improved today I will continue with the ELSY inhibitor Current Visit: No Hospitalist: Subjective Interval history: Patient continued to have abdominal pain. He underwent colonoscopy today and was normal no evidence of Crohn identified. GI plan to do EGD with the small bowel endoscopy and biopsy. He has no vomiting but eating very little able to tolerate a small amount of solid food after the colonoscopy. Exam - Constitutional Vitals: Period Temp Pulse Resp BP Sys/Bradley Pulse Ox Last 24 Hr 96.9 F-98 F 59-67 10-20 98-134/60-88 60-100 General appearance: no acute distress - Respiratory Respiratory exam: Present: clear to auscultation bilaterally. Absent: rales, rhonchi - Cardiovascular Cardiovascular exam: Present: regular rate and rhythm. Absent: tachycardia - GI/Abdominal GI/Abdominal exam: Present: normal bowel sounds, tenderness (Mild discomfort on palpation but no gross tenderness rigidity or rebound on abdominal palpation), soft. Absent: distended - Extremities Exam Extremities exam: Present: edema (Right lower extremities edema present) - Neurological Exam Neurological exam: Present: alert, oriented X3 - Psychiatric Psychiatric exam: Present: normal affect, normal mood Results - Labs CBC & BMP: 11/02/16 05:35 11/02/16 05:35 Lab Results: I have reviewed the past 24 hour labs
--- NOTE | 2016-11-02 17:30 | Ultrasound Report ---
US venous doppler LE RT Indication: Right lower extremity pain and swelling. Comparison: None. Technique: Using transcutaneous probe, color Doppler, spectral Doppler, and grayscale images prior to and following compression were obtained of the right lower extremity. Ultrasound images were captured and stored. Interrogated venous structures include the right common femoral vein, superficial femoral vein (proximal, mid, and distal), and popliteal vein. Findings: There is no evidence of thrombus within the interrogated right lower extremity venous structures. Spectral flow and color flow are present within the interrogated venous segments. Impression: 1. No evidence of venous thrombosis. 11/02/2016 5:27 PM PROCEDURE INTERPRETED AT [facility] DEPARTMENT OF RADIOLOGY Final Report Signed by: Dr. Moris Christopher
[2016-11-03] MEDS ORDERED: ALUMINUM/MAGNES/SIMETH MAX STR 30 ML UDCUP PO PRN (00:29)
[2016-11-03 07:02] LABS: Calcium 8.4 MG/DL (8.5-10.1); Osmolality,Calculated 282.1 MOS/KG (273-304); Potassium 3.5 MMOL/L (3.5-5.1)
[2016-11-03 07:45] LABS: Basophils % 0.5 % (0.0-0.8); Eosinophils # 0.1 10*3/uL (0.0-0.87); Eosinophils % 1.4 % (0.00-10.9); Hematocrit 35.2 VOL% (42.0-52.0); Immature Granulocytes % 0.3 %; Immature Granulocytes Absolute 0.02 #; Lymphocytes # 1.7 10*3/uL (1.4-4.0); Mean Corpuscular HGB Conc 34.1 GM/DL (32-36); Mean Corpuscular Hemoglobin 31 PG (27-34); Mean Corpuscular Volume 91.2 FL (87-102); Mean Platelet Volume 11.6 FL (9.6-12.0); Monocytes # 0.5 10*3/uL (0.11-0.8); Monocytes % 8.3 % (1.7-12.7); Neutrophils # 4.1 10*3/uL (1.4-7.4); Neutrophils % 63.5 % (38.7-73.9); Platelet Count 191 T/CUMM (130-400); Red Blood Count 3.86 MC/CUMM (3.8-5.5); Red Cell Distribution Width 11.9 % (9.3-17.3); White Blood Count 6.5 T/CUMM (4-12)
--- NOTE | 2016-11-03 08:07 | XRay Report ---
Exam: XR KUB Date: 11/02/2016 9:33 PM Comparison: 10/08/2016 Indication: Severe generalized pain Technique:[Supine abdomen] Findings: Mild gaseous distention of the bowel, especially the colon. Degenerative changes are noted. Atrioventricular permanent pacemaker. Impression: Mild gaseous distention of the bowel especially the colon which can be seen with mild ileus, etc. Permanent pacemaker. PROCEDURE INTERPRETED AT [facility] DEPARTMENT OF RADIOLOGY Final Report Signed by: Dr. Nidih Rolon
[2016-11-03] MEDS: ENOXAPARIN 40 MG/0.4 ML SYRINGE SUBCUT SCH ×2 (09:06→13:32)
[2016-11-03] MEDS: hydroCHLOROthiazide 25 MG TABLET PO SCH ×2 (09:06→13:30)
[2016-11-03] MEDS: hydrALAZINE 10 MG TABLET PO SCH ×4 (09:06→21:48)
[2016-11-03] MEDS: LISINOPRIL 20 MG TABLET PO SCH ×2 (09:07→13:30)
[2016-11-03] MEDS: amLODIPine 10 MG TABLET PO SCH ×2 (09:07→13:31)
[2016-11-03] MEDS: PANTOPRAZOLE 40 MG TABLET PO SCH ×2 (09:07→13:31)
[2016-11-03] MEDS ORDERED: LIDOCAINE 2% 5 ML VIAL ONE (10:30)
[2016-11-03] MEDS ORDERED: PROPOFOL 200 MG/20 ML VIAL IV ONE (10:30)
--- NOTE | 2016-11-03 10:45 | Operative Note ---
Date of procedure: 11/03/16 Pre-op diagnosis: Recurrent nausea and vomiting with suspected Crohn Procedure: EGD with small bowel endoscopy. 56-year-old gentleman with recurrent complaints of abdominal discomfort nausea and vomiting clinical suspicion of Crohn's with prior abnormal CT now for EGD and small bowel endoscopy to look for mucosal abnormalities. Informed symptoms obtained the patient He was sedated with MAC anesthesia per anesthesia protocol. Patient was placed in the left lateral decubitus position the Olympus flexible video pediatric colonoscope was inserted into the oral cavity under direct vision the esophagus intubated. Findings Esophagus-normal proximal mid esophageal mucosa distal esophagus with moderate hiatal hernia. Distal esophageal stricture is seen clinically asymptomatic. No varices Bonner's were identified. Stomach-normal insufflation normal mucosa to direct retroflexed views of the body fundus cardia and antrum the stomach. Pylorus-normal Duodenum-normal throughout the duodenum Jejunum the majority of the jejunum was thought to been visualized and no abnormalities were identified including the proximal ileum. The procedure terminated placed our procedure well his discharge recovery in good condition. Postop diagnosis: 1. Gastroesophageal reflux disease-continue PPI treatment 2. Esophageal stricture dilated as needed 3. Repeat CT scan abdomen pelvis for question of underlying Crohn's. If positive may need to consider laparoscopic evaluation for tissue diagnosis. Anesthesia: MAC Surgeon / Physician: Gerson Hernandez Estimated blood loss: none Specimens: none sent Condition: stable Disposition: post procedure unit Results - Labs CBC & BMP: 11/03/16 07:26 11/03/16 05:42 Discharge Plan - Discharge Medications No Action Etanercept [Enbrel] 50 mg SUBCUT MO HYDROcodone/ACETAMIN 10-325 [[place] 10-325] 1 tablet PO TID PRN PRN Reason: Pain Omeprazole 20 mg PO DAILY amLODIPine [Norvasc] 10 mg PO QAM hydrALAZINE TAB [Apresoline Tab] 10 mg PO QID Lisinopril 40 mg PO QAM hydroCHLOROthiazide [Hydrochlorothiazide] 25 mg PO QAM - Follow Up or Referral - Forms/Instructions
--- NOTE | 2016-11-03 11:01 | Anesthesia Post-Op ---
Anesthesia Post OP - Post Ansesthetic Evaluation Patient seen in post op: Yes Resp: within normal limits CV: within normal limits Mental: within normal limits Temp: within normal limits Tryb-Hr-Izsmspgim: within normal limits Nausea and Vomiting: within normal limits Pain: within normal limits
[2016-11-03] MEDS: SODIUM CHLORIDE 0.9% 1,000 ML IV SCH (12:10)
--- NOTE | 2016-11-03 14:17 | Hospitalist Progress Note ---
Assessment and Plan (1) Abdominal pain Status: Acute Assessment and plan: Unsure of etiology at present GI following and working him up. Patient is post colonoscopy , EGD and enteroscopy. No clear etiology so far apparent. GI following and plan to do a repeat CAT scan will keep follow on hemoglobin and hematocrit Current Visit: Yes (2) Hypertension Status: Chronic Assessment and plan: Controlled Current Visit: No (3) Acute renal failure Status: Acute Assessment and plan: Resolved I have stopped NSAIDs. He has been on ELSY inhibitor was discontinued due to renal recovery Current Visit: No Hospitalist: Subjective Interval history: Patient continued to have abdominal pain had colonoscopy yesterday which was grossly unremarkable and then EGD with small bowel endoscopy today. Patient had no bowel movement today but he has recently been prepped for the colonoscopy. No fever. Exam - Constitutional Vitals: Period Temp Pulse Resp BP Sys/Bradley Pulse Ox Last 24 Hr 96.5 F-98.2 F 61-74 18-24 115-152/66-90 92-100 General appearance: no acute distress - Respiratory Respiratory exam: Present: clear to auscultation bilaterally. Absent: rales, rhonchi - Cardiovascular Cardiovascular exam: Present: regular rate and rhythm. Absent: tachycardia - GI/Abdominal GI/Abdominal exam: Present: normal bowel sounds, tenderness (?Mild discomfort on palpation but no gross tenderness rigidity or rebound on abdominal palpation) , soft. Absent: distended - Extremities Exam Extremities exam: Present: Mild edema lower right thorax - Neurological Exam Neurological exam: Present: alert, oriented X3 - Psychiatric Psychiatric exam: Present: normal affect, normal mood Results - Labs CBC & BMP: 11/03/16 07:26 11/03/16 05:42 Lab Results: I have reviewed the past 24 hour labs
[2016-11-03] MEDS: MORPHINE 2 MG/1 ML SYRINGE IV PRN (18:41)
[2016-11-04] MEDS: MORPHINE 2 MG/1 ML SYRINGE IV PRN (00:35)
[2016-11-04] MEDS: SODIUM CHLORIDE 0.9% 1,000 ML IV SCH ×2 (00:43→12:53)
[2016-11-04] MEDS: amLODIPine 10 MG TABLET PO SCH (08:40)
[2016-11-04] MEDS: LISINOPRIL 20 MG TABLET PO SCH (08:40)
[2016-11-04] MEDS: hydroCHLOROthiazide 25 MG TABLET PO SCH (08:40)
[2016-11-04] MEDS: hydrALAZINE 10 MG TABLET PO SCH ×2 (08:40→12:53)
[2016-11-04] MEDS: ENOXAPARIN 40 MG/0.4 ML SYRINGE SUBCUT SCH (08:41)
[2016-11-04] MEDS: PANTOPRAZOLE 40 MG TABLET PO SCH (08:41)
--- NOTE | 2016-11-04 09:06 | CT Report ---
History: Severe abdominal pain. Enteritis. Suspected Crohn's disease Date: 11/04/2016 Study: CT abdomen and pelvis with IV contrast Comparison exam: Noncontrast CT abdomen and pelvis October 06, 2016 Technique: Spiral CT sections were obtained from the lung bases to the pubic symphysis following oral contrast and 100 mL Omnipaque 350 IV. Total DLP measures 950.1 mGy*cm. CT abdomen: There is mild dependent atelectasis in the lower lobes. There is trace pleural effusion bilaterally. Pacemaker leads are noted in the partially visualized right atrium and right ventricle as before. There is no evidence of pneumoperitoneum. There is some minimal diffuse fatty infiltration of the liver. There are some occasional scattered calcified granulomata within the liver and spleen. The pancreas, bile ducts, adrenal glands are unremarkable. There is no enhancing solid renal mass. There is no aortic aneurysm. There is no latrice bowel obstruction. The appendix is normal. There is no obvious pathologic wall thickening on the current exam to suggest active enteritis, when accounting for incomplete distention of some loops of ileum. There is no lymphadenopathy by short axis diameter criteria. There is slight asymmetric retroperitoneal fat stranding on the left, though this is an improvement from the previous CT scan. CT pelvis: There is no pelvic mass or pelvic lymphadenopathy. Impression: No CT evidence to support active Crohn's disease. Trace bilateral pleural effusion and bilateral dependent atelectasis which has developed since the previous study There is some mild retroperitoneal fat stranding on the left in the lower left abdomen and pelvis, though this is resolving compared to the previous CT. There is no intra-abdominal abscess The CT exam was performed using one or more of the following dose reduction techniques: Automated exposure control, adjustment of the mA and/or kV according to patient size, or use of iterative reconstruction technique. PROCEDURE INTERPRETED AT [facility] DEPARTMENT OF RADIOLOGY Final Report Signed by: Dr. Usha Mauro
--- NOTE | 2016-11-04 11:27 | Gastrointestinal Progress Note ---
<Brielle Sweeneyher Tucker - Last Filed: 11/04/16 11:23> Assessment and Plan (1) Abdominal pain Status: Acute Assessment and plan: 11/04-improvement in abdominal pain, no nausea vomiting. Tolerating diet. EGD with findings of reflux, esophageal stricture with dilation. CT findings negative for acute abdominal process. Can transition to oral antibiotics and discharge home from GI standpoint. Plan an addendum to follow Dr. Hernandez. 11/01-severe intractable abdominal pain with associated nausea, vomiting and diarrhea last night. Recent admission for very similar presentation with improvements following IV therapy and negative small bowel series. [facility] records received and most recent endoscopy noted as below. Leukocytosis on admission, afebrile. No IV antibiotics noted at this time. Continue to monitor. Plan an addendum to follow by Dr. Hernandez. Gastroenterology - PN: Subj Interval history: CC: Nausea and vomiting, abdominal pain Patient is seen, awake and alert lying in bed. States that his pain is a little better at this time and denies any further nausea or vomiting. States he is tolerating his diet well at this time. EGD on yesterday noted showed GERD and esophageal stricture with dilation. Repeat CT scan this morning with no acute abdominal findings. He is afebrile and has remained with normal WBCs. Discussed options with patient regarding transitioning him to oral antibiotics and discharge home and continue to see his response in his pain level and symptoms, but also offered a surgical consult. Patient at this time wishes to continue with the medications and will contact our office if the pain does not improve. Abdomen is soft, nontender. ROS: Denies shortness breath or chest pain Exam (Progress Note) - Constitutional Vitals: Period Temp Pulse Resp BP Sys/Bradley Pulse Ox Last 24 Hr 97.0 F-98.6 F 63-76 18-20 121-162/64-95 92-96 General appearance: normal weight, no acute distress - Head Head exam: Present: normal inspection, normocephalic - Eye Eye exam: Present: other (Lids and conjunctive are unremarkable). Absent: scleral icterus - ENT ENT exam: Present: normal exam, normal oropharynx - Neck Neck exam: Present: normal inspection - Respiratory Respiratory exam: Present: clear to auscultation bilaterally. Absent: rales, rhonchi, wheezes - Cardiovascular Cardiovascular exam: Present: regular rate and rhythm. Absent: diastolic murmur , JVD, systolic murmur - GI/Abdominal GI/Abdominal exam: Present: normal bowel sounds, soft. Absent: ascites, distended, mass, organomegaly, tenderness - Extremities Exam Extremities exam: Present: normal inspection, full ROM - Back Exam Back exam: Present: normal inspection - Neurological Exam Neurological exam: Present: alert, oriented X3 - Psychiatric Psychiatric exam: Present: normal affect, normal mood - Skin Skin exam: Present: normal color, warm, dry Results - Labs CBC & BMP: 11/03/16 07:26 11/03/16 05:42 Lab Results: I have reviewed the past 24 hour labs Specialty Discharge - Follow Up or Referrals Follow up with: Gerson Hernandez MD [Physician] - 12/09/16 2:30 pm <Gerson Hernandez - Last Filed: 11/04/16 17:33> Exam (Progress Note) - Constitutional Vitals: Period Temp Pulse Resp BP Sys/Bradley Pulse Ox Last 24 Hr 97.3 F-98.6 F 63-76 18-20 121-162/64-95 92-96 Results - Labs CBC & BMP: 11/03/16 07:26 11/03/16 05:42
[2016-11-04 11:51] VITALS: BP 134/81
--- NOTE | 2016-11-04 14:17 | Discharge Summary ---
Hospital Course - Hospital Course Hospital Course: Mr. Jordan is a 56-year-old with the history of for hypertension ankylosing spondylitis GERD and CAD admitted on 11/01/2016 with the abdominal pain like cramps. He had the prior admission with the nausea vomiting and diarrhea with abdominal pain. CT scan abdomen noted to have severe inflammatory changes of the small bowel with fluid-filled small and large bowel present throughout. No obstruction and disease like Crohn was suspected she did he had a small bowel x- ray which was normal. He was treated with the empiric antibiotics bowel rest PPI and hydration symptom improved and he was discharged on 10/11/2016 but returned again on 11/01/2016 with similar symptoms. He underwent EGD enteroscopy and colonoscopy without any significant finding explaining his symptoms. He had a CT scan abdomen again today and did not show any evidence supporting active Crohn disease. He also has some swelling of the left lower extremity during this stay and had a exam with a venous Doppler was negative for venous thrombosis. He also was noted to have a acute kidney injury and admission was hydrated and his renal function improved. He is noted to have a be on multiple medications for hypertension and his blood pressure has been fluctuating. His medication does not include ELSY inhibitor. I will ask him to stay hydrated avoid any NSAIDs and the monitor blood pressure at home. He has primary care provider Dr. Toledo and he need to follow their for ongoing evaluation and adjustment of medication treatment. I am not sure these fluctuations are because of hydralazine which is taking 4 times a day. Patient himself has to monitor his blood pressure at home for several days. If he has symptom causing hnot able to hydrate himself he need to return and stop lisinopril to like kidney injury. Patient was seen by the GI again today and I spoke to also verbally with them. Recommended to treat with the Flagyl 250 mg 3 times daily for 3 weeks. He has to follow-up with his GI provided transient primary care physician. I have also given him symptomatic treatment with Levsin as needed basis. Also noted patient has been on Enbrel and this he has to discuss with his provider prescribing him as I cannot comment to continue or discontinue this. Will be discharged and follow as mentioned with his primary care provider and GI provider at the [facility]. Diagnosis - Discharge Diagnosis (1) Abdominal pain Status: Acute (2) Hypertension Status: Chronic (3) Acute renal failure Status: Acute Discharge Plan - Discharge Data Disposition: Disch To Home/Self Care Condition at Discharge: Stable Discharge Diet: advance to your usual diet Activity: resume usual activities as tolerated Hygiene: no restrictions - Discharge Medications New Hyoscyamine Sulfate [Levsin-Sl] 0.125 mg SL Q4-6H PRN #30 tab.subl PRN Reason: Abdominal Pain metroNIDAZOLE TAB [Flagyl Cap/Tab] 250 mg PO TID #63 tablet Continue HYDROcodone/ACETAMIN 10-325 [[place] 10-325] 1 tablet PO TID PRN PRN Reason: Pain Omeprazole 20 mg PO DAILY amLODIPine [Norvasc] 10 mg PO QAM hydrALAZINE TAB [Apresoline Tab] 10 mg PO QID Lisinopril 40 mg PO QAM hydroCHLOROthiazide [Hydrochlorothiazide] 25 mg PO QAM No Action Etanercept [Enbrel] 50 mg SUBCUT MO - Follow Up or Referral - Forms/Instructions Exam - Constitutional Vitals: Period Temp Pulse Resp BP Sys/Bradley Pulse Ox Last 24 Hr 97.0 F-98.6 F 63-76 18-20 121-162/64-95 92-96 General appearance: no acute distress, over weight - Respiratory Respiratory exam: Present: clear to auscultation bilaterally. Absent: rales, rhonchi - Cardiovascular Cardiovascular exam: Present: regular rate and rhythm. Absent: tachycardia - GI/Abdominal GI/Abdominal exam: Present: normal bowel sounds, soft. Absent: distended, mass , tenderness - Extremities Exam Extremities exam: Present: normal inspection. Absent: edema - Neurological Exam Neurological exam: Present: alert, oriented X3 - Skin Skin exam: Present: normal color, warm DS: Provider Date of admission: 11/01/16 05:49 Primary care physician: Saran Toledo Attending physician on admission: Kendall Tinajero MD Consults: 11/01/16 06:41 Consult to Physician [CONS] Routine Comment: recurrent abdominal pain Consulting Provider: Gerson Hernandez Discharging clinician: Andrew Armstrong MD
== END 2016-11-04 16:15 | disposition home or self-care (01) | DRG 392 ==
LOC: EDBD → EDUNIT# → N.ED 01:37 → N.EDINP 05:49 → SUATTDRO 05:49 → N.2E 06:11
PROVIDERS: ADMIT Internal Medicine; ATTEND Internal Medicine